=== PATIENT | female | born 1960 | race Caucasian/White ===

== ENCOUNTER 2016-09-11 05:55 | Emergency (ER) | payer OTHER ==
[~2016-09-11] VITALS: Ht 167.6 cm; Wt 67.3 kg
[2016-09-11 05:57] VITALS: BP 134/84; PULSE 78; RESP 16; O2SAT 98
--- NOTE | 2016-09-11 06:02 | ED.REPORT ---
HPI-Abd Pain F 40 and Over Date of Service Sep 11, 2016 ED Provider: Suleman Liang MD 55 year old female presents to the ER accompanied by her complaining of a month of cramping abdominal pain. Associated symptoms include subjective fever , chills, vomiting, and episodic watery diarrhea every three days that follows a normal bowel movement. Symptoms seem to be exacerbated by eating. Recently she has .been on a bland diet to treat symptoms. Patient denies hematochezia, hematemesis, melena. Currently she is on Prilosec and Align Probiotic. reports that patient has an appointment with GI next week, but symptoms were severe and persistent enough that he brought the patient in to the ER today. Patient was seen by urgent care three days ago for symptoms. Nursing Notes Stated Complaint: STOMACH PAIN Chief Complaint: Female Abdominal Pain Nursing Notes Reviewed: Yes Allergies: Coded Allergies: No Known Allergies (Verified , 09/11/16) General Time Seen by MD: 06:01 Chief Complaint Abdominal pain Hx Obtained From: Patient Arrived By: Walk-in Sudden in Onset?: No Onset Occurred: More than a week ago... (1 month) Symptom Duration: Since onset Progression since Onset: Unchanged Location: : Diffuse Quality: Cramping, Painful Severity: Current: Moderate Severity: Maximum: Moderate Associated with: Reports: Chills, Diarrhea, Fever (subjective), Nausea, Vomiting, Denies: Constipation, Hematemesis, Hematochezia, Melena, Urinary frequency Context Related History: Reports: Endometriosis Recent Healthcare: Recent doctor visit Past Medical History Past Medical History Endometriosis Denies: COPD, Cancer, Congestive heart failure, Coronary artery disease, Diabetes mellitus, Hypertension Denies: Thyroid disease Past Surgical History Reports: Hysterectomy Smoking History Never Smoker Social History Alcohol Use: 1-3 per week (wine or beer) Other Social History: Good social support, Ambulatory Status Independent Review of Systems Constitutional: Reports: Chills, Fever (Subjective) GI: Reports: Abdominal pain, Diarrhea, Nausea, Vomiting, Denies: Bloody/tarry stool, Hematemesis, Hematochezia, Melena Female: Reports: Urinary urgency (a), Denies: Dysuria, Flank pain, Hematuria Complete sys rev & neg: except as marked. Physical Exam Vital Signs Vital Signs (First) Date Time Temp Pulse Resp B/P Pulse Ox O2 Delivery O2 Flow Rate FiO2 09/11/16 05:57 36.2 78 16 134/84 98 Room Air Initial VS: Reviewed Head / Eyes: Atraumatic, Normocephalic Neck: Supple, Non-tender, Full range of motion Extremities: Vascular intact, Neuro intact, No swelling, No tenderness Skin: Warm, Dry, No cyanosis Neurologic: Alert, Oriented, Nonfocal Psychiatric: Mood/affect normal, Behavior normal, Normal thought content General/Constitutional: Awake, Alert, Well appearing, Well developed, Well nourished Respiratory / Chest: Breath sounds NL, Breath sounds = bilat, No respiratory distress, No rales, No rhonchi, No wheezing, No stridor Cardiovascular: Heart rate NL, Regular rhythm, Heart sounds NL, Peripheral circulation NL Abdomen: Soft, No guarding, No rebound, No distention Tenderness/Guarding/Rebound: Positive: Tender diffuse (Left greater than Right) Back: Inspection NL, Non-tender, No CVA tenderness Interpretation & Diagnostics Lab Results Interpretation Test 09/11/16 07:00 Hold Urine Received (Received) Re-Eval/Medical Decision Source of Hx: Old records Re-Evaluation/Progress #1: Time of Eval: 07:17 Re-Evaluation/Progress Note: Patient is in the bathroom. Re-Evaluation/Progress #2: Time of Eval: 07:39 Re-Evaluation/Progress Note: Discussed physical examination results, lab results from her visit three days ago, and plan to discharge. Patient is amenable to the plan. Return precautions given. All other questions addressed. I had a lengthy discussion with the patient offered further testing such as CT scanning which she has declined. I believe the appropriate next step is to await GI consultation which is already planned. We have sent a stool for PCR evaluation which hopefully will be helpful for the GI assessment. I have prescribed empiric Levsin to see if this will help her symptoms. Counseled Regarding: Diagnosis, Lab results, Need for follow-up, When/why to return to ED Discharge & Departure Primary Impression: Abdominal pain Abdominal location: epigastric Qualified Code: R10.13 - Epigastric pain Additional Impressions: Vomiting Vomiting type: unspecified Vomiting Intractability: non-intractable Nausea presence: with nausea Qualified Code: R11.2 - Nausea with vomiting, unspecified Diarrhea Disposition: Home Discharge Condition All VS Reviewed: Yes Condition: Stable Patient Instructions: Acute Abdominal Pain (ED) Additional Instructions: Your lab results from several days ago and your workup in the ER today are reassuring; I am confident that there is no immediately dangerous cause for your symptoms at this time. Take Tylenol for pain, up to 1000mg every 6 hours as needed. For severe pain, take hyoscyamine as directed. Avoid using ibuprofen, as this medication is known to be associated with gastrointestinal bleeding. Iron is fine to take for now, but it is known to cause constipation. Follow-up with gastroenterology as planned. Return to the ER if you develop intolerable pain, fever, blood in your stool, lightheadedness, dizziness, and any other concerning signs or symptoms. Referrals: NOPCP (PCP) Rony Attestation Portions of this note were transcribed by Ricky Shore. I, Dr. Liang, personally performed the history, physical exam and medical decision-making; I reviewed and confirmed the accuracy of the information in the transcribed note. Signed by: Santiago Garcia and Rony Cheung, 09/11/2016 and 07:55 Suleman Liang MD Sep 11, 2016 06:02 RICKY SHORE Sep 11, 2016 06:07
[2016-09-11] MEDS ORDERED: HYOS0.1218 SL (08:08)
[2016-09-11 08:14] VITALS: BP 135/75; PULSE 95; RESP 18
[2016-10-10] MEDS ORDERED: ACET-171 PO (12:58)
[2016-10-21] MEDS ORDERED: NO MEDS (10:07)
[2016-11-19] MEDS ORDERED: [UNRECOGNIZED DRUG - CODE] PO (14:14)
[2016-11-19] MEDS ORDERED: ASCO500C6 PO (14:14)
[2016-11-19] MEDS ORDERED: ONDA4TAB9 PO (14:14)
[2016-11-19] MEDS ORDERED: [UNRECOGNIZED DRUG - OTHER] (14:14)
[2016-11-19] MEDS ORDERED: IRON PO (14:14)
[2017-01-02] MEDS ORDERED: VITA400C19 PO (12:30)
[2017-01-02] MEDS ORDERED: CBD Oil PO (12:30)
== END 2016-09-11 08:07 | disposition home or self-care (01) ==
LOC: SED 05:55
DX: R10.13 Epigastric pain (principal); R11.2 Nausea with vomiting, unspecified; R19.7 Diarrhea, unspecified

== ENCOUNTER 2016-09-15 09:03 | Emergency (ER) | payer OTHER ==
[~2016-09-15] VITALS: Ht 167.6 cm; Wt 144.0 kg
[~2016-09-15 09:03] MED LIST: HYOS0.1218 SL
[2016-09-15 09:06] VITALS: BP 143/86; PULSE 100; RESP 15; O2SAT 98
[2016-09-15] MEDS ORDERED: 0.9% Sodium Chloride 1,000 ML IV ONE (09:24)
--- NOTE | 2016-09-15 09:24 | ED.REPORT ---
HPI-General Illness Date of Service Sep 15, 2016 ED Provider: Fredy Rodriguez MD 55 year old female with a history of hysterectomy presents to the ER referred from urgent care due to five days of persistent nausea, diarrhea, and intractable vomiting. Associated symptoms include fever, cramping abdominal pain , "heartburn" symptoms, and bloating. Patient denies hematemesis, and hematochezia. She states that symptoms have been present for 6 weeks, worsening over the past several days. Patient was seen here in the ER five days ago and discharged with a prescription of hyoscyamine and instructions to follow-up with GI after being worked up for similar. Symptoms are also being treated with Prilosec with minimal relief. Nursing Notes Stated Complaint: GENERAL Chief Complaint: Female Abdominal Pain Nursing Notes Reviewed: Yes Allergies: Coded Allergies: No Known Allergies (Verified , 09/11/16) Scheduled Hyoscyamine SL (Hyoscyamine SL) 0.125 Mg Subl 0.125 MG SL QID Scheduled PRN Loperamide HCl (Imodium A-D) 2 Mg Capsule 4 MG PO TID PRN PRN For Diarrhea or Loose Stool Ondansetron ODT (Zofran ODT) 4 Mg Tablet 4 MG PO Q4H PRN PRN For Nausea Simethicone (Simethicone) 180 Mg Capsule 180 MG PO QID PRN PRN AD General Time Seen by MD: 09:23 Chief Complaint Vomiting Hx Obtained From: Patient Arrived By: Walk-in Sudden in Onset?: No Onset Occurred: 5 days ago Associated with: Reports: Nausea, Vomiting, Denies: Fever Additional Notes: Diarrhea Denies hematemesis, hematochezia Recent Healthcare: Recent doctor visit Similar Sx Previous: Yes Past Medical History Past Medical History Endometriosis Past Surgical History Reports: Hysterectomy Smoking History Never Smoker Social History Alcohol Use: 1-3 per week Other Social History: Good social support, Ambulatory Status Independent Review of Systems Full Review of Systems Constitutional: Reports: Fever, Denies: Chills Respiratory: Denies: Non-productive cough, Shortness of breath Cardiovascular: Denies: Chest pain GI: Reports: Abdominal pain, Diarrhea, Nausea, Vomiting, Denies: Bloody/tarry stool, Hematemesis, Hematochezia, Melena Female: Denies: Dysuria, Flank pain, Hematuria Complete sys rev & neg: except as marked. Physical Exam Vital Signs Vital Signs Date Time Temp Pulse Resp B/P Pulse Ox O2 Delivery O2 Flow Rate FiO2 09/15/16 11:57 36.2 74 16 128/68 100 Room Air 09/15/16 10:46 74 16 128/68 100 Room Air 09/15/16 09:06 36.2 100 15 143/86 98 Room Air Initial VS: Reviewed Head / Eyes: Atraumatic, Normocephalic Neck: Supple, Non-tender, Full range of motion Extremities: Vascular intact, Neuro intact, No swelling, No tenderness Skin: Warm, Dry, No cyanosis Neurologic: Alert, Oriented, Nonfocal General/Constitutional: Awake, Alert, Well developed, Well nourished ENT: Airway patent, Pharynx NL Mouth: Positive: Mucous membranes dry Respiratory / Chest: Breath sounds NL, No respiratory distress, No rales, No rhonchi, No wheezing Cardiovascular: Heart rate NL, Regular rhythm, Heart sounds NL, Cap refill not delayed, Peripheral circulation NL Abdomen: Soft, No guarding, No rebound, No distention Tenderness/Guarding/Rebound: Positive: Tender epigastric Tolerates firm palpation all 4 quadrants. Interpretation & Diagnostics Lab Results Interpretation Result Diagram: 09/15/16 0940 09/15/16 0940 Test 09/15/16 09:10 09/15/16 09:40 Hold Urine Received (Received) White Blood Count 3.4th/mm3 (3.8-10.1) Red Blood Count 4.38mil/mm3 (3.90-5.20) Hemoglobin 10.5g/dL (12.0-15.6) Hematocrit 33.6% (35.0-46.0) Mean Corpuscular Volume 76.7fL (81-100) Mean Corpuscular Hemoglobin 24.0pg (27.0-35.0) Mean Corpuscular Hemoglobin Concent 31.3% (32.0-37.0) Red Cell Distribution Width 15.3% (12.3-15.4) Platelet Count 269bil/L (150-400) Neutrophils (%) (Auto) 63.7% (40-74) Lymphocytes (%) (Auto) 24.8% (14-46) Monocytes (%) (Auto) 10.3% (4-12) Eosinophils (%) (Auto) 0.6% (0-5) Basophils (%) (Auto) 0.6% (0-3) Sodium Level 136mEq/L (134-144) Potassium Level 4.2mEq/L (3.5-5.2) Chloride Level 97mEq/L (97-108) Carbon Dioxide Level 20mmol/L (18-29) Blood Urea Nitrogen 14mg/dL (6-24) Creatinine 0.69mg/dL (0.57-1.00) Estimat Glomerular Filtration Rate 126mL/min (>59) Glucose Level 86mg/dL (60-99) Calcium Level 8.8mg/dL (8.5-10.1) Total Bilirubin 0.4mg/dL (0.0-1.2) Aspartate Amino Transf (AST/SGOT) 14U/L (0-50) Alanine Aminotransferase (ALT/SGPT) 7U/L (0-32) Alkaline Phosphatase 47U/L (25-150) Total Protein 6.5g/dL (6.4-8.4) Albumin 4.5g/dL (3.4-5.0) Lipase 59U/L (13-60) Hold Walls Top Tube Received (Received) Re-Eval/Medical Decision Med Decision/Clinical Course 55 year old female with a history of hysterectomy presents to the ER referred from urgent care due to five days of persistent nausea, diarrhea, and intractable vomiting. Associated symptoms include fever, cramping abdominal pain , "heartburn" symptoms, and bloating. Patient denies hematemesis, and hematochezia. She states that symptoms have been present for 6 weeks, worsening over the past several days. Patient was seen here in the ER five days ago and discharged with a prescription of hyoscyamine and instructions to follow-up with GI after being worked up for similar. Symptoms are also being treated with Prilosec with minimal relief. Patient was treated with the below medications: Imodium Simethicone Pantoprazole Thereafter she reported significant symptomatic improvement and was able to tolerate PO. Laboratory studies were notable as below: CBC normal Stable Hct CMP normal Serial abdominal examinations remained benign. At this time. No findings suggestive of bowel obstruction or acute surgical intra-abdominal process. Symptoms all started after a severe gastroenteritis-type illness, I suspect that due to forceful vomiting she may have sustained some injury to her lower esophageal sphincter resulting in the persistent heartburn that she has been experiencing. She is afebrile without leukocytosis or bloody stool suggestive of a bacterial etiology of her gastroenteritis. Stool PCR obtained during her last visit was completely unremarkable. At this time, I see no indication for further imaging studies or workup. I feel that she will likely sustain ongoing symptom relief from the above medications. She has already been referred to gastroenterology and has an appointment in the next week. She will return to the emergency room should she develop any new or worsening symptoms. Follow-up and return precautions were reviewed in detail and she was discharged in good condition. Source of Hx: Old records Time of Eval: 11:19 Re-Evaluation/Progress Note: Discussed lab results and plan to discharge. Patient is amenable to the plan. Return precautions given. All other questions addressed. Counseled Regarding: Diagnosis, Lab results, Need for follow-up, When/why to return to ED Discharge & Departure Primary Impression: Nausea Additional Impressions: Abdominal pain Abdominal location: unspecified location Qualified Code: R10.9 - Unspecified abdominal pain GERD (gastroesophageal reflux disease) Esophagitis presence: esophagitis presence not specified Qualified Code: K21.9 - Gastro-esophageal reflux disease without esophagitis Gastroenteritis Disposition: Home Discharge Condition All VS Reviewed: Yes Condition: Stable Patient Instructions: Gastroesophageal Reflux Disease (DC), Acute Abdominal Pain (ED) Additional Instructions: Thank you for seeking care at emergency room for your nausea and abdominal pain. Our primary goal today in the ED was to evaluate you for any life-threatening conditions. Your evaluation was reassuring. You will be discharged with prescriptions for Simethicone, Imodium, and Zofran. Please take as directed. Take Simethicone as needed for bloating and flatulence Take Imodium as needed for diarrhea. Use Zofran as needed for nausea. Take one Prilosec in the morning, and one at night. Keep your appointment with the GI doctor. You should return to the ED immediately if you develop worsening pain, blood in your vomit, blood in your stool, high fever, or any other concerning signs or symptoms. Thank you for letting us partake in your care today. Referrals: Karina Simms DO (PCP) Scribe Attestation Portions of this note were transcribed by Ricky Shore. I, Dr. Rodriguez, personally performed the history, physical exam and medical decision-making; I reviewed and confirmed the accuracy of the information in the transcribed note. Signed by: Rony Cheung, 09/15/2016 and 11:20 copies to: Karina Simms Beck O MD Sep 15, 2016 09:24 RICKY SHORE Sep 15, 2016 09:29
[2016-09-15] MEDS ORDERED: Ondansetron 2 mg/mL 2 mL Inj IVPUSH ONE (09:25)
[2016-09-15 09:46] LABS: BASOPHILS % (AUTO) 0.6 % (0-3); EOSINOPHILS % (AUTO) 0.6 % (0-5); MONOCYTES % (AUTO) 10.3 % (4-12); Mean Corpuscular Volume 76.7 fL (81-100); NEUTROPHILS % (AUTO) 63.7 % (40-74); Platelet Count 269 bil/L (150-400)
[2016-09-15] MEDS ORDERED: Pantoprazole 4 mg/mL 10 mL Inj IVPUSH ONE (09:50)
[2016-09-15] MEDS ORDERED: SIME180C42 PO (09:52)
[2016-09-15] MEDS ORDERED: LOPE-147 PO (09:52)
[2016-09-15] MEDS ORDERED: ONDA4TAB9 PO (09:52)
[2016-09-15 10:46] VITALS: BP 128/68; PULSE 74; RESP 16; O2SAT 100
[2016-09-15 11:57] VITALS: BP 128/68; PULSE 74; RESP 16; O2SAT 100
[2016-10-10] MEDS ORDERED: ACET-171 PO (12:58)
[2016-10-21] MEDS ORDERED: NO MEDS (10:07)
[2016-11-19] MEDS ORDERED: ONDA4TAB9 PO (14:14)
[2016-11-19] MEDS ORDERED: IRON PO (14:14)
[2016-11-19] MEDS ORDERED: ASCO500C6 PO (14:14)
[2016-11-19] MEDS ORDERED: [UNRECOGNIZED DRUG - CODE] PO (14:14)
[2016-11-19] MEDS ORDERED: [UNRECOGNIZED DRUG - OTHER] (14:14)
[2017-01-02] MEDS ORDERED: VITA400C19 PO (12:30)
[2017-01-02] MEDS ORDERED: CBD Oil PO (12:30)
== END 2016-09-15 11:58 | disposition home or self-care (01) ==
LOC: SED 09:03
DX: K52.9 Noninfective gastroenteritis and colitis, unspecified (principal); K21.9 Gastro-esophageal reflux disease without esophagitis; Z87.42 Personal history of other diseases of the female genital tract; Z90.710 Acquired absence of both cervix and uterus
CPT/HCPCS: 36415; 80053; 83690; 85025; 96361; 96374; 96375; 99285; G0463; J2405; J7030

== ENCOUNTER 2016-09-19 04:54 | Inpatient (IN) | payer OTHER ==
[~2016-09-19] VITALS: Ht 167.6 cm; Wt 62.7 kg
[~2016-09-19 04:54] MED LIST changes: +LOPE-147 PO; +ONDA4TAB9 PO; +SIME180C42 PO
[2016-09-19 04:57] VITALS: BP 139/92; PULSE 104; RESP 18; O2SAT 99
[2016-09-19] MEDS ORDERED: Ondansetron 2 mg/mL 2 mL Inj IVPUSH ONE (05:20)
[2016-09-19] MEDS ORDERED: Pantoprazole 4 mg/mL 10 mL Inj IVPUSH ONE (05:20)
[2016-09-19 05:42] LABS: BASOPHILS % (AUTO) 0.2 % (0-3); EOSINOPHILS % (AUTO) 0.4 % (0-5); MONOCYTES % (AUTO) 5.6 % (4-12); Mean Corpuscular Volume 76.8 fL (81-100); NEUTROPHILS % (AUTO) 85.7 % (40-74); Platelet Count 307 bil/L (150-400)
[2016-09-19 06:04] LABS: Magnesium 2.2 mg/dL (1.6-2.6)
--- NOTE | 2016-09-19 06:05 | ED.REPORT ---
HPI-Abd Pain F 40 and Over Date of Service Sep 19, 2016 ED Provider: Shawna Aquino MD Patient is a 55 year old female w/ a hx of hysterectomy who presents to the ED for the 3rd time in 3 weeks due to intractable vomiting. Associated symptoms include persistent nausea, episodic watery diarrhea, cramping abdominal pain, "heartburn" symptoms, subjective fever, and bloating. Symptoms seem to be exacerbated by eating. Patient denies hematemesis, and hematochezia. She has lost 4 or 5 lbs since symptoms began. She saw a veterinary virologist on Thursday who planned to do a CT, endoscopy and colonoscopy. However, insurance company denied CT and recommended an US. Pt describes the persistent illness is "just wearing me down." She had an episode of vomiting and diarrhea this morning. She has been dealing with abdominal pain and an array of symptoms for a total of 7 weeks. Pt indicates she is quite healthy otherwise. She was most recently seen four days ago similar symptoms Stool PCR study done 8 days ago (09/11/16) did not show any acute findings. Nursing Notes Stated Complaint: ABDOMINAL PAIN Chief Complaint: Female Abdominal Pain Nursing Notes Reviewed: Yes Allergies: Coded Allergies: No Known Allergies (Verified , 09/19/16) Scheduled Ascorbate Calcium (Vitamin C) 500 Mg Tablet 500 MG PO DAILY Ferrous Sulfate (Ferrous Sulfate) 325 Mg Tablet 325 MG PO DAILY Hyoscyamine SL (Hyoscyamine SL) 0.125 Mg Subl 0.125 MG SL QID Omeprazole (Omeprazole) 20 Mg Capsule.dr 20 MG PO BID Scheduled PRN Ondansetron ODT (Zofran ODT) 4 Mg Tablet 4 MG PO Q4H PRN PRN For Nausea Simethicone (Simethicone) 180 Mg Capsule 180 MG PO QID PRN PRN AD General Time Seen by MD: 05:17 Chief Complaint Vomiting severe (intractable) Hx Obtained From: Patient Arrived By: Walk-in Sudden in Onset?: Yes Onset Occurred: More than a week ago... (1 month) Symptom Duration: Since onset Progression since Onset: Gradually worsening Location: : Diffuse Quality: Burning, Cramping Radiation: : Does not radiate Severity: Current: Moderate Recent Healthcare: Recent doctor visit Similar Sx Previous: Yes Past Medical History Past Medical History Endometriosis Past Surgical History Reports: Hysterectomy Smoking History Never Smoker Social History Alcohol Use: 1-3 per week Other Social History: Good social support, Ambulatory Status Independent Review of Systems Constitutional: Reports: Fever (subjective ) GI: Reports: Abdominal pain, Diarrhea, Nausea, Vomiting, Denies: Hematemesis, Hematochezia Complete sys rev & neg: except as marked. Physical Exam Vital Signs Vital Signs (First) Date Time Temp Pulse Resp B/P Pulse Ox O2 Delivery O2 Flow Rate FiO2 09/19/16 04:57 35.9 104 18 139/92 99 Room Air Initial VS: Reviewed Head / Eyes: Atraumatic, Normocephalic, PERRL Extremities: Vascular intact, Neuro intact, No swelling, No tenderness Neurologic: Alert, Oriented, Nonfocal Psychiatric: Mood/affect normal, Behavior normal, Normal thought content General/Constitutional: Awake Distress / Hydration: Positive: Distress moderate Respiratory / Chest: Atraumatic, Breath sounds NL, Breath sounds = bilat, No respiratory distress Cardiovascular: Heart rate NL, Regular rhythm, Heart sounds NL, No gallop, No murmurs, No rubs Bowel Sounds / Distention: Positive: Bowel sounds hypoactive diffusely tender w/ firmness in both upper quadrants no point tenderness Back: Atraumatic, Inspection NL, Full range of motion, Painless range of motion , Non-tender Mouth: Positive: Mucous membranes dry Interpretation & Diagnostics Lab Results Interpretation Result Diagram: 09/19/16 0530 09/19/16 0530 Test 09/19/16 05:30 09/19/16 07:22 White Blood Count 5.6th/mm3 (3.8-10.1) Red Blood Count 4.91mil/mm3 (3.90-5.20) Hemoglobin 11.8g/dL (12.0-15.6) Hematocrit 37.7% (35.0-46.0) Mean Corpuscular Volume 76.8fL (81-100) Mean Corpuscular Hemoglobin 24.0pg (27.0-35.0) Mean Corpuscular Hemoglobin Concent 31.3% (32.0-37.0) Red Cell Distribution Width 16.0% (12.3-15.4) Platelet Count 307bil/L (150-400) Neutrophils (%) (Auto) 85.7% (40-74) Lymphocytes (%) (Auto) 7.9% (14-46) Monocytes (%) (Auto) 5.6% (4-12) Eosinophils (%) (Auto) 0.4% (0-5) Basophils (%) (Auto) 0.2% (0-3) Prothrombin Time 10.8sec (8.1-12.5) Prothromb Time International Ratio 1.01ratio Sodium Level 142mEq/L (134-144) Potassium Level 4.4mEq/L (3.5-5.2) Chloride Level 100mEq/L (97-108) Carbon Dioxide Level 26mmol/L (18-29) Blood Urea Nitrogen 14mg/dL (6-24) Creatinine 0.80mg/dL (0.57-1.00) Estimat Glomerular Filtration Rate 106mL/min (>59) Glucose Level 127mg/dL (60-99) Calcium Level 9.6mg/dL (8.5-10.1) Magnesium Level 2.2mg/dL (1.6-2.6) Total Bilirubin 0.4mg/dL (0.0-1.2) Aspartate Amino Transf (AST/SGOT) 15U/L (0-50) Alanine Aminotransferase (ALT/SGPT) 11U/L (0-32) Alkaline Phosphatase 51U/L (25-150) Total Protein 7.4g/dL (6.4-8.4) Albumin 4.7g/dL (3.4-5.0) Lipase 125U/L (13-60) Hold Walls Top Tube Received (Received) Urine Color Straw (YELLOW) Urine Appearance Hazy (CLEAR,HAZY) Urine pH 5.5 (5.0-8.0) Urine Specific [facility] 1.030 (1.003-1.035) Urine Protein Tracemg/dL (NEG,TRACE) Urine Glucose (UA) Negativemg/dL (NEGATIVE) Urine Ketones 40mg/dL (NEGATIVE) Urine Occult Blood Negative (NEGATIVE) Urine Nitrite Negative (NEGATIVE) Urine Bilirubin Negative (NEGATIVE) Urine Urobilinogen Normalmg/dL (NORMAL) Urine Leukocyte Esterase Negative (NEGATIVE) Urine RBC 0-2/hpf (0-2) Urine WBC 0-5/hpf (0-5) Urine Epithelial Cells Occasional/hpf (NONE-MOD) Urine Crystals Oxalic acid crystals (NONE Urine Bacteria Few/hpf (NONE-FEW) Urine Hyaline Casts Occasional/lpf (NONE) Urine Granular Casts None seen (NONE SEEN) Urine Waxy Casts None seen (NONE SEEN) Urine Red Blood Cell Casts None seen (NONE SEEN) Urine White Blood Cell Casts None seen (NONE SEEN) Urine Mucus Present (None Seen) Urine Trichomonas None seen (NONE SEEN) Urine Yeast None (NONE SEEN) Urinalysis Comment None Urine Culture Reflexed Not indicated CT Abd / Pelvis Interpretation IMPRESSION: 1. Mid and distal small bowel obstruction with findings suspicious for cecal "apple core" lesion suggesting primary colonic neoplasm. Colonoscopy or barium enema is recommended to further characterize findings. This finding was discussed with Dr. Aquino at 8:36 AM on 09/19/16. 2. Subcentimeter right hepatic hypodensity which likely represents a small hepatic cyst, although without prior comparisons, small hepatic metastasis cannot be excluded. Dictated by: Lilly Marie M.D. on 09/19/2016 at 8:25 Approved by: Lilly Marie M.D. on 09/19/2016 at 8:44 Study type: Abdominal CT no contrast Interpretation / Wet Read by: Interpret - Radiologist Re-Eval/Medical Decision Med Decision/Clinical Course 55-year-old otherwise healthy woman presents with 7 weeks of increasing abdominal pain the last 7 days she has barely been able to keep anything down with recurrent vomiting. 3 ER visits and a gastroenterology consult. Today's CT scan of the abdomen is ordered and reveals a new mass in the right lower quadrant of the abdomen. Surgical consultation is obtained. She will be admitted for additional workup and bowel cleanse NG tube was placed on undergo colonoscopy and then staged decision making for treatment of the newly discovered mass Re-Evaluation/Progress #1: Time of Eval: 08:45 Patient Status: Condition unchanged Re-Evaluation/Progress Note: Pt rechecked. Discussed blood work. Liver test, kidney test, and WBC count are normal. Elevated lipase (125). Plan for nausea medicine and CT scan. Re-Evaluation/Progress #2: Time of Eval: 09:29 Patient Status: Condition unchanged Re-Evaluation/Progress Note: Pt rechecked. Explained results of CT scan to pt and family. Discussed possible cancer diagnosis and plan for admission. Explained need for NG tube. Pt understands and agrees with plan. All questions addressed. Consultation : Referral / Consult Name: RenatoAbdi MD Consulted With: Surgeon Call Returned at: 08:41 Dispensary Clerk: Accepts admit Note: Case discuss. Dr. Gross accepts admit. Counseled Regarding: Diagnosis, Lab results, Need for admission Discharge & Departure Primary Impression: Abdominal mass, RLQ (right lower quadrant) Additional Impression: Bowel obstruction Disposition: ADMITTED TO HOSPITAL Discharge Condition All VS Reviewed: Yes Condition: Stable Referrals: Karina Simms DO (PCP) Scribtara Attestation Portion of this note were transcribed by Fabiana Cunningham. I, Dr. Aquino, personally performed the history, physical exam, and medical decision-making: I reviewed and confirmed the accuracy for the information in the transcribed note. Signed by: omar Robledo, 09/19/16 0800 copies to: Karina Simms Shawna L MD Sep 19, 2016 06:05 FABIANA CUNNINGHAM Sep 19, 2016 07:25
[2016-09-19 06:11] LABS: INR 1.01 ratio
[2016-09-19] MEDS ORDERED: 0.9% Sodium Chloride 1,000 ML IV ONE (07:15)
[2016-09-19] MEDS ORDERED: Ondansetron 2 mg/mL 2 mL Inj IVPUSH PRN (07:15)
[2016-09-19 07:21] VITALS: BP 122/80; PULSE 71; RESP 18
[2016-09-19 08:03] LABS: APPEARANCE,URINE HAZY (CLEAR,HAZY); COLOR,URINE STRAW (YELLOW); OCCULT BLOOD,URINE NEGATIVE (NEGATIVE); PH,URINE 5.5 (5.0-8.0)
[2016-09-19 08:07] LABS: UROBILINOGEN,URINE NORMAL (NORMAL)
[2016-09-19] MEDS: HYDROmorphone 0.5 mg/0.5 mL iSecure Syringe IVPUSH PRN ×2 (08:07→21:06)
--- NOTE | 2016-09-19 08:46 | DRSVH ---
PROCEDURE: CT ABDOMEN AND PELVIS WITH CONTRAST ([id number]) INDICATIONS: belly pain for 7 weeks, can't eat TECHNIQUE: After the administration of intravenous contrast, 5 mm thick sections acquired from the diaphragm to the symphysis. 5 mm coronal and sagittal reformats were acquired. For radiation dose reduction, the following was used: automated exposure control, adjustment of mA and/or kV according to patient siz e. COMPARISON: None. FINDINGS: Image quality: Excellent. ABDOMEN: Lung bases: Lung bases are clear. Heart size is normal. Solid organs: Liver and spleen are normal in size and enhancement. There is a subcentimeter hypodens ity within hepatic segment (series 2, image 26). This may represent a hepatic cyst, but is incompl etely characterized. Gallbladder is unremarkable. Biliary system is non dilated. Pancreas enhances normally. No adrenal nodules. Kidneys demonstrate normal size and enhancement, without hydronephros is. Peritoneum and bowel: There is a small hiatal hernia. The stomach is decompressed. The duodenum and p roximal jejunum are decompressed. A transition point is present within the mid jejunum (series 4, kaveh ge 19) demonstrating marked dilatation of the distal jejunum and the entirety of the ileum. The first portion of the cecum is markedly dilated. An soft tissue mass is present within the midportion of th e cecum (series 2, image 64). This has the appearance of a "apple core" lesion, suspicious for coloni c neoplasm. The downstream colon is filled with a small amount of stool. The appendix is thin-walled and fluid filled. Nodes and vessels: No retroperitoneal or mesenteric adenopathy by size criteria. Aorta and inferior vena cava are normal in size. Miscellaneous: No ventral hernias. PELVIS: Genitourinary: Bladder is decompressed. The uterus is nonvisualized and may be surgically absent. Miscellaneous: No inguinal hernias or adenopathy. Bones: No suspicious bony lesions. No vertebral body compression fractures. IMPRESSION: 1. Mid and distal small bowel obstruction with findings suspicious for cecal "apple core" lesion sugg esting primary colonic neoplasm. Colonoscopy or barium enema is recommended to further characterize f indings. This finding was discussed with Dr. Aquino at 8:36 AM on 09/19/16. 2. Subcentimeter right hepatic hypodensity which likely represents a small hepatic cyst, although wit hout prior comparisons, small hepatic metastasis cannot be excluded. Dictated by: Lilly Marie M.D. on 09/19/2016 at 8:25 Approved by: Lilly Marie M.D. on 09/19/2016 at 8:44
[2016-09-19] MEDS ORDERED: HYDROmorphone 1 mg/mL Inj IVPUSH ONE (09:30)
[2016-09-19] MEDS ORDERED: Sodium Chloride LOK Flush 10 mL Syringe IVFLUSH PRN ×2 (09:35)
[2016-09-19] MEDS ORDERED: Lidocaine 2% 5 mL Topical Jelly ONE (09:42)
[2016-09-19 10:18] VITALS: BP 132/76; PULSE 69; RESP 23
--- NOTE | 2016-09-19 10:24 | NUR ---
NUTRITION ASSESSMENT: ASSESS:55 year old female presents to the ED for the 3rd time in 3 weeks due to intractable vomiting. Associated symptoms include persistent nausea and episodic watery diarrhea, cramping abdominal pain, "heartburn" symptoms, subjective fever, and bloating. Symptoms seem to be exacerbated by eating. She has been dealing with abdominal pain and an array of symptoms for a total of 7 weeks and states "it is wearing me down". CT abdomen / pelvis revealing mid and distal small bowel obstruction with findings suspicious for cecal "apple core" lesion, suggesting primary colonic neoplasm. There is also a subcentimeter right hepatic hypodensity which likely represents a small hepatic cyst, although without prior comparisons, small hepatic metastasis cannot be excluded. Surgery ordering TPN to start this evening. Patient is at significant risk for refeeding syndrome. PMHx:Endometriosis, status post hysterectomy. DIET:NPO. LABS: Reviewed. Glucose 127, A1c pending, Lipase 125. MEDICATIONS: Reviewed. Insulin. NUTRITION FOCUSED PHYSICAL ASSESSMENT: GI symptoms / stool: No stool reported.[place]: None reported. Skin Integrity: Not reported. ANTHROPOMETRICS: Current Wt: 65.9 kgBMI: 23.4 kg/m2. IBW: 59.1 kg (111.5% IBW) ESTIMATED NEEDS (CANCER): Calories: 1648 - 1977 kcal (25 - 30 kcal / kg BW) Protein: 99 - 132 g protein (1.5 - 2.0 g / kg BW) NUTRITION DIAGNOSIS: 1)Inadequate oral intake related to inability to consume sufficient energy, as evidenced by dx small bowel obstruction; surgery following. INTERVENTION: 1) TPN recommendation follows / called to Pharmacy. Due to risk for refeeding, recommend initial TPN at 25% goal macronutrient profile: 80 g dextrose, 30 g amino acid, 10 g lipids. 2) Once refeeding risk resolved, likely Thursday, 09/22, recommend advance TPN slowly to goal macronutrient profile 330 g dextrose, 120 g amino acid, 35 g lipid (57% dextrose, 25% AA, 18% lipid), providing 1952 kcal, 120 g protein, sufficient to meet approx. 100% nutrient needs. MONITOR/EVALUATE: TPN tolerance / advance, labs, GI/nutrition status. Follow up per high nutrition risk guidelines. Addendum: 09/20/16 at [address] TPN appears well tolerated; however, pt. remains at significant risk for refeeding. Will continue same macronutrient profile through weekend and f/u Friday 09/22. Will add Ensure Clear supplement to clear liquid diet.
[2016-09-19] MEDS ORDERED: FERR-83 PO (10:34)
[2016-09-19] MEDS ORDERED: ASCO-294 PO (10:34)
[2016-09-19] MEDS ORDERED: OMEP20CA11 PO (10:34)
--- NOTE | 2016-09-19 11:27 | CONS ---
[address] [address] CONSULTATION REPORT PATIENT: DESMOND KEY : 1960 MR#: [id number] ADMIT: 09/19/2016 JOB ID: [id number] DATE OF SERVICE: 09/19/2016 SURGICAL CONSULTATION: REASON FOR CONSULTATION: The patient is seen in consultation at the request of Dr. Shawna Aquino of the emergency department regarding further evaluation and management of a likely cecal obstruction from malignancy. HISTORY OF PRESENT ILLNESS: The patient is a 55-year-old female who presented to the emergency department early this morning with a recurrent complaint of abdominal pain, nausea, and vomiting, and just overall feeling lousy. She tells me that in the early part of July she developed what she describes as flu-like symptoms. This vomiting and diarrhea after eating a bowl of chili. She switched to a bland diet and eventually was able to feel a little bit better, however then she had recurrent symptoms. Since that time she has had periodic recurrences of nausea and vomiting, heavy belching, and abdominal distention. She has presented to the emergency department on two separate occasions with complaint of abdominal pain and nausea. This was on September 11 and then later on September 15. She was eventually referred to GI and saw them early this week. The gastroenterology PA desired to obtain a CT scan as well as to schedule her for an endoscopy. Unfortunately her insurance company denied the CT scan and endoscopy is yet to be scheduled. When she presented this morning she was found to be tachycardic. A CT scan was indeed obtained, which I personally reviewed. This demonstrates mid and distal small bowel obstruction with findings suspicious for a cecal apple core lesion suggesting a primary colonic neoplasm. There is also a subcentimeter right hepatic hypodensity which likely represents a small hepatic cyst, although metastatic disease cannot be excluded. The patient tells me that her last bowel movement was this morning. Her last meal was on Thursday. She believes she has had a 4-5 pound weight loss over the last two weeks. PAST MEDICAL HISTORY: None. CURRENT MEDICATIONS: None. ALLERGIES: She has no known drug allergies. PAST SURGICAL HISTORY: 1. She had resection of the ovary and tube for a tubal . She believes that was on the right side. 2. She had a vaginal hysterectomy in 2007. 3. She had shoulder surgery in 2012. FAMILY HISTORY: Reviewed and negative colorectal carcinoma. SOCIAL HISTORY: She lives in [place] and is currently unemployed. Does not smoke. Occasionally drinks alcohol. REVIEW OF SYSTEMS: Full review of systems is obtained and as per the HPI. PHYSICAL EXAMINATION: She was afebrile upon admission. This morning her heart rate was 69 beats per minute. Blood pressure is 132/76. She is satting 99 on room air with respiratory rate of 23 breaths per minute. In general, she appears comfortable, in no acute distress. Cardiovascular: She has a regular rate and rhythm. No appreciated murmurs, rubs, gallops. Pulmonary: Lungs clear to auscultation bilaterally. Vascular: She has no carotid bruit. Neck: She has no thyromegaly. Lymph: She has no cervical lymphadenopathy. GI: Her abdomen is soft, nondistended. She has diffuse mild tenderness to palpation, worse on the left than the right. Extremities: Warm, without significant edema. Skin: Warm, without rash. Neurologic: Grossly intact. Psychiatric: Pleasant and appropriate. LABORATORIES: Her white blood cell count was 5.6, hematocrit 37.7, platelet count 307. Her creatinine is 0.8. Her albumin is 4.7. IMAGING: CT scan of the abdomen and pelvis is personally reviewed and as per the HPI, suggesting a possible primary cecal neoplasm with partial obstruction. 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 I am going to admit the patient to the hospital under my service. I have asked the emergency department nurse to place an NG tube for decompression. The plan will be to have a PICC line placed today and start her on TPN for nutritional support in anticipation of a right colectomy in the near future. Hopefully, we can get her adequately decompressed with an NG tube over the next day or so and then give her a bowel prep and I can plan on performing a colonoscopy to obtain a definitive diagnosis prior to surgery. At that point, if she is able to tolerate liquids, she could potentially be discharged home with plans for an elective right colectomy. However, if not, then I will have to plan on the right colectomy during the same hospitalization. I discussed this in detail with the patient as well as her partner. She understands and is in agreement.
--- NOTE | 2016-09-19 11:37 | PCM.CONPHA ---
Subjective Reason for Pharmacy Consult: TPN Management Assessment/Plan Assessment/Plan PARENTERAL NUTRITION ORDERS 1 19-Sep-16 Standard Hang Time: 2100 Substrates Total kcal: 492 AMINO ACIDS 30 g DEXTROSE 80 g Total Volume (mL): 1800 LIPIDS 10 g Sterile Water for Injection QS mL To Infuse Over (hrs): 24 Total Volume 1800 mL At at a rate of (mL/hr): 75 Additives Sodium Chloride 50 mEq "typical" daily requirements Sodium Acetate mEq Sodium 50-120mEq Potassium Chloride 40 mEq Potassium 60-120mEq Potassium Phosphate 30 mEq Phosphate 20-40mEq Calcium Gluconate 9 mEq Magnesium 8-32mEq Magnesium Sulfate 16 mEq Calcium 9-22mEq Acetate* 80-120mEq Chloride* 80-120mEq Regular Insulin units *Depending on acid-base status Famotidine 40 mg Multivitamins 1 std dose Insulin Regimen Trace Elements 1 std dose none Thiamine 100 mg Regular Low Intensity Subcut Folic Acid 1 mg Regular Medium Intensity Subcut Ascorbic Acid mg Regular High Intensity Subcut Regular Insulin Infusion Other: Special Instructions: To be infused via central line only. For delay or inturruption of TPN contact the pharmacist for alternative replacement solution. Signature Date: [facility]ESM[id number], 2016 11[facility]37
[2016-09-19] MEDS: Dextrose 5% Lactated Ringer's 1,000 ML IV SCH ×2 (12:30→23:48)
[2016-09-19] MEDS: Heparin 5,000 Unit/mL Inj SUBQ SCH ×2 (12:36→17:33)
--- NOTE | 2016-09-19 12:44 | NUR ---
Arrival to [facility] Unit 1135am pt arrived to [facility] unit rm 246-2; per pt, "pain is way better /10 from 01/03 previous." NG tube hooked to low int suction; bowel tones hypoactive all quadrants, IV SL, RA, VSS, BG 105 upon arrival and pt able to ambulate from wheelchair to bed ind with steady gait. D5LR started 100/mls per hr and oriented to room. Personal belongings in bag in a closet and to take pt's ID with him at time of departure. Will continue to monitor with frequent rounds.
[2016-09-19] MEDS: Insulin Human REGular 300 Unit/3 mL Inj SUBQ SCH ×2 (14:30→21:34)
[2016-09-19 14:57] VITALS: BP 129/71; PULSE 63; RESP 18
--- NOTE | 2016-09-19 15:04 | NUR ---
Social Work Note - Assessment Dian Steinberg is a 55 yr old admitted for bowel obstruction. EMR reviewed: Pt has [employer] Medicaid, her PCP is Dr Warner. DPOA in medical record. Pt lives at home in [place] with her significant other. She is independent at baseline, No DME. 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 PAINT SPRAYING MACHINE OPERATOR HELPER will follow if needs arise. Plan: home with Family in [place]. KATTY Calderon
--- NOTE | 2016-09-19 16:07 | NUR ---
Pt to Picc Suite Pt wheeled to PICC suite in wheelchair, A&Ox3, VSS, RA, IV SL, NG tube in place, steady gait with transfer, no c/o pain and chart with pt.
--- NOTE | 2016-09-19 17:00 | NUR ---
Return from PICC Suite Pt return from PICC suite, double lumin PICC line in place L arm; no c/o pain; PICC line flushes and draws w/o complications, IV D5LR infusing 100mls/hr; VSS. Will continue to monitor with frequent rounds.
[2016-09-19 17:05] VITALS: BP 150/82; PULSE 64; RESP 18
--- NOTE | 2016-09-19 17:19 | DRSVH ---
PROCEDURE: X-RAY PICC LINE PLACEMENT BY NURSE ([id number]) INDICATIONS: TPN COMPARISON: None. FINDINGS: PICC was placed by the intravenous therapy team from the left side. Fluoroscopic spot celeste m demonstrates tip of PICC overlying the distal SVC. IMPRESSION: Tip of PICC overlies the distal SVC. Dictated by: Charlene Carrera M.D. on 09/19/2016 at 17:17 Approved by: Charlene Carrera M.D. on 09/19/2016 at 17:18
[2016-09-19 21:00] VITALS: BP 137/79; PULSE 69; RESP 18; O2SAT 100
[2016-09-19] MEDS: TPN Per Pharmacist XX SCH (21:29)
[2016-09-19] MEDS: Total Parenteral Nutrition 1 BAG IV SCH (21:30)
[2016-09-20] VITALS (7 sets, daily range): BP systolic 113–128; BP diastolic 69–83; PULSE 58–74; RESP 16–18; O2SAT 96–99
[2016-09-20] MEDS: Heparin 5,000 Unit/mL Inj SUBQ SCH ×3 (00:30→16:33)
[2016-09-20] MEDS: HYDROmorphone 1 mg/mL Inj IVPUSH PRN ×2 (02:00→07:12)
[2016-09-20] MEDS: Insulin Human REGular 300 Unit/3 mL Inj SUBQ SCH ×4 (02:30→20:30)
[2016-09-20 06:18] LABS: BASOPHILS % (AUTO) 0.3 % (0-3); EOSINOPHILS % (AUTO) 2.5 % (0-5); MONOCYTES % (AUTO) 7.1 % (4-12); Mean Corpuscular Hemoglobin 23.7 pg (27.0-35.0); Mean Corpuscular Volume 76.9 fL (81-100); NEUTROPHILS % (AUTO) 64.4 % (40-74); Platelet Count 194 bil/L (150-400)
--- NOTE | 2016-09-20 06:37 | NUR ---
pain/Activity c/o /10 abdominal pain. administered 1 mg IVP Dilaudid. pt respond pain relived by resting quietly in bed with eyes closed, no voice of pain afterward. pt has been ambulating to the rest room multiple times with SBA. NG tube output 150ml brown greenish drainage.Tolerated ice chips and sips. no c/o nausea. Bed is locked and in low position. call light within reach. will continue to monitor.
[2016-09-20 06:39] LABS: Magnesium 2.8 mg/dL (1.6-2.6)
--- NOTE | 2016-09-20 07:22 | NUR ---
Elevated Potassium Patient has a potassium of 6.6 this morning. NOC RN paged Dr. Arndt with these results, but no response was received. I have paged Dr. Gross at [phone], as Dr. Gross is listed as the admitting/attending MD and no other hospitalist is listed.
--- NOTE | 2016-09-20 07:24 | NUR ---
STAT Potassium Lab Received return call from Dr. Gross, I made him aware of K 6.6, he asked for a stat Potassium lab to verify this result.
--- NOTE | 2016-09-20 08:15 | PCM.PNSURG ---
Subjective Visit Information: Reason for Visit Bowel Obstruction/Cancer Dx Surgery/Surgery Date Post-Op Day # Date of Admission: Sep 19, 2016 at 10:18 Hospital Day # Subjective: had a liquid BM, abd feels better, doesn't like the NGT Objective Objective Awake NGT --> 400 cc brownish fluid Abd: soft, nontender, no mass effect Vital Sign- Last 8 Hours Date Time Temp Pulse Resp B/P Pulse Ox O2 Delivery O2 Flow Rate FiO2 09/20/16 07:52 36.5 58 16 121/76 97 Room Air 09/20/16 07:14 36.3 66 18 128/83 99 Room Air 09/20/16 02:51 36.7 60 16 117/70 96 Room Air 09/20/16 00:39 36.6 65 16 126/77 96 Room Air Intake and Output- Last 8 Hour 09/20/16 Cumulative From/Thru 07:00 09/19/16 04:57 - 09/19/16 22:46 Intake Total 1489 ml Output Total 750 ml Balance 739 ml Intake Oral 50 ml IV Total 1439 ml Output Urine Total 600 ml Gastric Drainage Total 150 ml Result Diagram: 09/20/16 0548 09/20/16 0548 Assessment & Plan Impression Cecal mass Problems: Plan Remove NGT and start clears Repeat labs today Continue TPN Plan for bowel prep on Thursday and colonoscopy on Hero Lechuga MD Sep 20, 2016 08:15
[2016-09-20] MEDS: TPN Per Pharmacist XX SCH (08:30)
[2016-09-20] MEDS: Dextrose 5% Lactated Ringer's 1,000 ML IV SCH ×2 (09:07→18:12)
[2016-09-20 09:22] LABS: Magnesium 2.1 mg/dL (1.6-2.6); Phosphorus 2.8 mg/dL (2.5-4.9)
[2016-09-20] MEDS: Ondansetron 2 mg/mL 2 mL Inj IVPUSH PRN (09:32)
--- NOTE | 2016-09-20 09:57 | PCM.PHAPRO ---
Progress TPN #2 Indication: Cecal obstruction, likely colectomy in near future Assessment I. Fluid/HD Euvolemic, VSS, UOP good, I/O balanced II. Chem Lytes WNL and without remarkable trends III. Glycemic control BS<150 IV substrate Advanced conservatively by 50% to ~ 40% of goal PARENTERAL NUTRITION ORDERS 2 20-Sep-16 Standard Hang Time: 2100 Substrates Total kcal: 738 AMINO ACIDS 45 g DEXTROSE 120 g Total Volume (mL): 1800 LIPIDS 15 g Sterile Water for Injection QS mL To Infuse Over (hrs): 24 Total Volume 1800 mL At at a rate of (mL/hr): 75 Additives Sodium Chloride 60 mEq "typical" daily requirements Sodium Acetate 40 mEq Sodium 50-120mEq Potassium Chloride 40 mEq Potassium 60-120mEq Potassium Phosphate 40 mEq Phosphate 20-40mEq Calcium Gluconate 9 mEq Magnesium 8-32mEq Magnesium Sulfate 16 mEq Calcium 9-22mEq Acetate* 80-120mEq Chloride* 80-120mEq Regular Insulin units *Depending on acid-base status Famotidine 40 mg Multivitamins 1 std dose Insulin Regimen Trace Elements 1 std dose none Thiamine 100 mg Regular Low Intensity Subcut Folic Acid 1 mg Regular Medium Intensity Subcut Ascorbic Acid mg Regular High Intensity Subcut Regular Insulin Infusion Other: Special Instructions: Rubén Daugherty Pharm D Sep 20, 2016 09:56
--- NOTE | 2016-09-20 10:45 | NUR ---
Morning Rounds Staffed patient's case with case management, no hospitalist assigned to patient. No plan for discharge at thia time, no placement needs identified at this time.
--- NOTE | 2016-09-20 11:09 | NUR ---
Heartburn Contacted Dr. Lechuga with the following cook page: Patient has been complaining of heartburn since removal of NG tube, stated she has taken Prilosec in the past for heartburn. Please advise. Thank you. Ceci CALLAHAN
[2016-09-20] MEDS: Total Parenteral Nutrition 1 BAG IV SCH (21:05)
[2016-09-21] MEDS: Heparin 5,000 Unit/mL Inj SUBQ SCH ×4 (00:49→22:10)
[2016-09-21] MEDS: Insulin Human REGular 300 Unit/3 mL Inj SUBQ SCH ×4 (02:45→20:30)
[2016-09-21 03:44] LABS: BASOPHILS % (AUTO) 0.3 % (0-3); EOSINOPHILS % (AUTO) 3.8 % (0-5); MONOCYTES % (AUTO) 10.7 % (4-12); Mean Corpuscular Hemoglobin 23.7 pg (27.0-35.0); Mean Corpuscular Volume 79.5 fL (81-100); NEUTROPHILS % (AUTO) 52.4 % (40-74); Platelet Count 196 bil/L (150-400)
--- NOTE | 2016-09-21 04:05 | NUR ---
Activity pt ambulated multiple times to the restroom. encouraged to ambulated in the hallway, but pt state she would like to get well rest tonight and will walk tomorrow. no c/o pain/N/V/D. Tolerating PO intake.
[2016-09-21] MEDS: Dextrose 5% Lactated Ringer's 1,000 ML IV SCH ×2 (04:30→14:46)
[2016-09-21 04:43] LABS: Magnesium 2.2 mg/dL (1.6-2.6); Phosphorus 4.2 mg/dL (2.5-4.9)
[2016-09-21 06:05] VITALS: BP 112/67; PULSE 83; RESP 16; O2SAT 97
[2016-09-21 08:03] VITALS: BP 114/69; PULSE 78; RESP 16; O2SAT 99
--- NOTE | 2016-09-21 08:15 | NUR ---
Plan for Bowel Prep Dr. Lechuga met with patient at bedside this morning, stated patient will start bowel prep tonight for procedure this morning. I asked MD if he would be putting in order for the bowel prep, he stated the patient brought the prep with her, asked when to start the prep and he stated no particular time just start tonight.
[2016-09-21] MEDS: TPN Per Pharmacist XX SCH (08:30)
--- NOTE | 2016-09-21 08:54 | PCM.PHAPRO ---
Progress PARENTERAL NUTRITION ORDERS 3 - Standard Hang Time: 2100 Substrates Total kcal: 1102 AMINO ACIDS 60 g DEXTROSE 180 g Total Volume (mL): 1800 LIPIDS 25 g Sterile Water for Injection QS mL To Infuse Over (hrs): 24 Total Volume 1800 mL At at a rate of (mL/hr): 75 Additives Sodium Chloride 60 mEq "typical" daily requirements Sodium Acetate 40 mEq Sodium 50-120mEq Potassium Chloride 40 mEq Potassium 60-120mEq Potassium Phosphate 40 mEq Phosphate 20-40mEq Calcium Gluconate 9 mEq Magnesium 8-32mEq Magnesium Sulfate 16 mEq Calcium 9-22mEq Acetate* 80-120mEq Chloride* 80-120mEq Regular Insulin units *Depending on acid-base status Famotidine 40 mg Multivitamins 1 std dose Insulin Regimen Trace Elements 1 std dose none Thiamine mg Regular Low Intensity Subcut Folic Acid mg Regular Medium Intensity Subcut Ascorbic Acid mg Regular High Intensity Subcut Regular Insulin Infusion Other: Special Instructions: To be infused via central line only. For delay or inturruption of TPN contact the pharmacist for alternative replacement solution. Rubén Daugherty Pharm D Sep 21, 2016 08:54
--- NOTE | 2016-09-21 09:50 | PCM.PNSURG ---
Subjective Visit Information: Reason for Visit Bowel Obstruction/Cancer Dx Surgery/Surgery Date Post-Op Day # Date of Admission: Sep 19, 2016 at 10:18 Hospital Day # Subjective: feels better with NGT out, passing flatus, no real BM, tolerated clears, heartburn under control by elevating her back Objective Objective awake in bed, conversant in room Abd: soft Vital Sign- Last 8 Hours Date Time Temp Pulse Resp B/P Pulse Ox O2 Delivery O2 Flow Rate FiO2 09/21/16 08:03 37.1 78 16 114/69 99 Room Air 09/21/16 06:05 36.8 83 16 112/67 97 Room Air Intake and Output- Last 8 Hour 09/21/16 Cumulative From/Thru 07:00 09/19/16 04:57 - 09/20/16 17:44 Intake Total 6462 ml Output Total 4375 ml Balance 2087 ml Intake Oral 3146 ml IV Total 2477 ml TPN/PPN 839 ml Output Urine Total 4075 ml Gastric Drainage Total 300 ml # Bowel Movements 0 Result Diagram: 09/21/16 0328 09/21/16 0328 Assessment & Plan Impression Cecal mass Problems: Plan Continue TPN and clears Start bowel prep and Thursday Colonoscopy on with Hero Garcia MD Sep 21, 2016 09:50
[2016-09-21 13:41] VITALS: BP 148/82; PULSE 66; RESP 16; O2SAT 99
[2016-09-21 16:27] VITALS: BP 145/84; PULSE 71; RESP 16; O2SAT 100
--- NOTE | 2016-09-21 16:30 | NUR ---
Bloating/Cramping/Watery Stools Contacted Dr. Nieto with the following cook page: Patient is reporting bloating and cramping, 7-8/10 pain at peak of cramps and is now having watery stools prior to any bowel prep. Tums has not worked. Please advise. Thank you. Mariella CALLAHAN Addendum: 09/21/16 at 1631 by MARIELLA SHIPLEY RN Dr. Lechuga was contacted, not Dr. Nieto, noted named Dr. Nieto in error.
--- NOTE | 2016-09-21 16:48 | NUR ---
Received return call from MD Dr. Lechuga return my call, he stated there are no medications that will work for patient's current issues, as the issue is more with the patient's patient's lesion/potential cancer, stated if the patient wants to try an NG she can, but this is up to her, she can have pain medications if needed which are already ordered. He stated there is no need for a stool sample as the watery stools are related to the current CT findings.
[2016-09-21] MEDS ORDERED: [UNRECOGNIZED DRUG - OTHER] PO ONE (18:00)
[2016-09-21] MEDS: Total Parenteral Nutrition 1 BAG IV SCH (20:54)
[2016-09-21 21:02] VITALS: BP 145/82; PULSE 68; RESP 16; O2SAT 97
[2016-09-22] MEDS: Dextrose 5% Lactated Ringer's 1,000 ML IV SCH ×2 (00:03→09:26)
[2016-09-22] MEDS: Insulin Human REGular 300 Unit/3 mL Inj SUBQ SCH ×4 (03:15→20:30)
[2016-09-22 05:37] VITALS: BP 133/81; PULSE 66; RESP 16; O2SAT 95
--- NOTE | 2016-09-22 06:06 | NUR ---
Bowel Prep/Activity Pt began bowel prep at 314, tolerating well with no c/o N/V. Pt up to BR independently for loose stools. Pt reports feeling "much better" since starting TPN, infusing at 75cc/hr. BG 94, VSS.
[2016-09-22 06:21] LABS: Magnesium 2.2 mg/dL (1.6-2.6); Phosphorus 4.5 mg/dL (2.5-4.9)
--- NOTE | 2016-09-22 07:57 | NUR ---
mobility/pain Pt up to [facility] with 1 assist. Crying, reporting severe muscle spasms. After return to bed reports MD wanted her off all her medication. She is requesting toradol, not time yet. During conversation pt fell asleep. No medication given at this time. Will notify palliative care.
--- NOTE | 2016-09-22 08:20 | PCM.PNSURG ---
Subjective Date of Service: Sep 22, 2016 Visit Information: Reason for Visit Bowel Obstruction/Cancer Dx Surgery/Surgery Date Post-Op Day # Date of Admission: Sep 19, 2016 at 10:18 Hospital Day #4 Subjective: Has started GoLYTELY prep this morning. Several bowel movements overnight and this morning. Denies abdominal pain, complains of crampy discomfort from drinking the prep. No nausea or vomiting. Ambulatory in the room. Anticipating colonoscopy tomorrow morning. Postop General: No Complaints Gastrointestinal: Tolerating Oral Feedings, No N/V, Passing Stool Pain Management: No or Minimal Pain Postop Activity: Ambulating in Room Only Objective Vital Sign- Last 8 Hours Date Time Temp Pulse Resp B/P Pulse Ox O2 Delivery O2 Flow Rate FiO2 09/22/16 05:37 36.5 66 16 133/81 95 Room Air Intake and Output- Last 8 Hour 09/22/16 Cumulative From/Thru 07:00 09/19/16 04:57 - 09/22/16 06:21 Intake Total 2182 ml 21438 ml Output Total 1650 ml 43399 ml Balance 532 ml 3128 ml Intake Oral 200 ml 3982 ml IV Total 848 ml 6568 ml TPN/PPN 1134 ml 2803 ml Output Urine Total 1650 ml 9925 ml Gastric Drainage Total 300 ml # Bowel Movements 9 11 General: Alert, Cooperative, No Acute Distress Lungs: Clear to Auscultation Heart: Regular Rate/Rhythm Abdomen: Soft, Non-tender, Non-distended, No masses Extremities: Thigh&Calf Soft/Nontender Neuro: Normal Speech Catheters: None Result Diagram: 09/21/16 0328 09/22/16 0500 Assessment & Plan Impression Partial small bowel obstruction for the past 2 months with radiographic findings of a cecal mass. Problems: Plan 1. Complete GoLYTELY prep today. 2. Colonoscopy by Dr. Gross tomorrow. Pain Management: Intermittent IV analgesic VTE Prophylaxis: Sub-Q Heparin (Unfractionated), SCDs Resuscitation Status: CPR: Attempt Resuscitation Mark Duran PA-C Sep 22, 2016 08:20
[2016-09-22] MEDS: TPN Per Pharmacist XX SCH (08:30)
[2016-09-22] MEDS: Heparin 5,000 Unit/mL Inj SUBQ SCH ×2 (08:41→17:10)
[2016-09-22 09:40] VITALS: BP 122/77; PULSE 69; RESP 16; O2SAT 99
--- NOTE | 2016-09-22 10:55 | PCM.PHAPRO ---
Progress PARENTERAL NUTRITION ORDERS 4 - Standard Hang Time: 2100 Substrates Total kcal: 1605 AMINO ACIDS 85 g DEXTROSE 225 g Total Volume (mL): 1800 LIPIDS 50 g Sterile Water for Injection QS mL To Infuse Over (hrs): 24 Total Volume 1800 mL At at a rate of (mL/hr): 75 Additives Sodium Chloride 60 mEq "typical" daily requirements Sodium Acetate 40 mEq Sodium 50-120mEq Potassium Chloride 40 mEq Potassium 60-120mEq Potassium Phosphate 40 mEq Phosphate 20-40mEq Calcium Gluconate 9 mEq Magnesium 8-32mEq Magnesium Sulfate 16 mEq Calcium 9-22mEq Acetate* 80-120mEq Chloride* 80-120mEq Regular Insulin units *Depending on acid-base status Famotidine 40 mg Multivitamins 1 std dose Insulin Regimen Trace Elements 1 std dose none Thiamine mg Regular Low Intensity Subcut Folic Acid mg Regular Medium Intensity Subcut Ascorbic Acid mg Regular High Intensity Subcut Regular Insulin Infusion Other: Special Instructions: To be infused via central line only. For delay or inturruption of TPN contact the pharmacist for alternative replacement solution. Signature Date: DESMOND KYE 246-2 [facility] SamuelHenok Sep 22, 2016 10:55
--- NOTE | 2016-09-22 12:30 | NUR ---
Social Work Note Continued Discharge Planning: D/A: The Pt is a 55 y/o female that was admitted on 09/19/16 for bowel obstruction/cancer Dx as per EMR. The Pt is ambulating in room only. GI involved, colonoscopy anticipated for 09/23. No SW needs identified at this time. SW to follow if needs arise. P: The Pt is not medically stable for discharge. Colonoscopy anticipated for 09/23. No SW needs identified at this time, SW to follow if needs arise. Rossy Webster MSW Special Education Bus Driver SAHARA Ho
--- NOTE | 2016-09-22 14:30 | NUR ---
NUTRITION FOLLOW-UP: ASSESS: 55 year old female admitted for small bowel obstruction and cecal mass. Pt is taking golytely prep today for colonoscopy tomorrow. Pt has been on TPN since 09/19, with pharmacy slowly increasing TPN over the weekend. Pt appears to be tolerating TPN well at this this time. PMHx: Endometriosis, status post hysterectomy. DIET: Clear Liquids, 10-100%. NUTRITION SUPPORT: TPN~180 g dextrose, 60 g amino acids, and 25 g lipids providing 1102 kcals and 60 g protein. LABS: Reviewed. Na 143, BUN 9, Cr 0.49, Glu 104, Lipase 236. MEDICATIONS: Reviewed. GI symptoms / stool: BM x 9 (pt taking golytely prep for colonoscopy tomorrow) ANTHROPOMETRICS: Current Wt: 65.3 kg Admit wt: 65.9 kg BMI: 23.4 kg/m2. IBW: 59.1 kg (111.5% IBW) ESTIMATED NEEDS (CANCER): Calories: 1648 - 1977 kcal (25 - 30 kcal / kg BW) Protein: 65-100 g protein (1.0-1.5 g / kg BW) Fluids: 3178-7264 ml fluids (1 ml/kcal BW) NUTRITION DIAGNOSIS: 1) Inadequate oral intake related to inability to consume sufficient energy, as evidenced by small bowel obstruction--PERSIST, PT NOW ON TPN. INTERVENTION: 1) Recommend increasing TPN to 225 g dextrose, 85 g amino acids, and 50 g lipids to provide 1605 kcals and 85 g protein per day. 2) As TPN continues to be well tolerated, recommend continuing to advance TPN to goal TPN of 300 g dextrose, 85 g amino acid, 50 g lipids to provide 1860 kcals and 85 g protein per day. 3) Once diet is able to be advanced and well tolerated, recommend tapering TPN. MONITOR/EVALUATE: TPN tolerance / advance, PO intake, diet advancement / tolerance, labs, GI/nutrition status. Follow per high nutrition risk guidelines. Addendum: 09/23/16 at [address] Recommend continuing current macronutrients of 225 g dextrose and 85 g amino acids, no lipids as lipase is elevated and trending upward. TPN will provide 1105 kcals and 85 g protein. Will continue to monitor for further TPN advancement.
[2016-09-22 17:00] VITALS: BP 156/88; PULSE 63; RESP 18
--- NOTE | 2016-09-22 17:33 | NUR ---
stool/pain pt reporting 12 stools, voids in toilet/BM at the same time. Reports clear with flecks. In AM enc pt to let staff see as will need to report to MD. No c/o pain. C/O bloating when drinking to much at one time. Has drank 1/2 of the contrast per order slowly over the course of the day.
[2016-09-22] MEDS: Total Parenteral Nutrition 1 BAG IV SCH (21:00)
[2016-09-23] VITALS (7 sets, daily range): BP systolic 111–131; BP diastolic 70–83; PULSE 63–91; RESP 14–20; O2SAT 96–100
[2016-09-23] MEDS: Heparin 5,000 Unit/mL Inj SUBQ SCH ×3 (00:06→16:30)
[2016-09-23] MEDS: Insulin Human REGular 300 Unit/3 mL Inj SUBQ SCH ×4 (02:30→20:30)
[2016-09-23] MEDS: Dextrose 5% Lactated Ringer's 1,000 ML IV SCH (04:35)
--- NOTE | 2016-09-23 05:43 | NUR ---
Shift Note Assumed pt care at 2100, pt a/o, c/o abdominal bloating, relieved by ambulation x2 around unit ly, pt continues with IVF and IV TPN, q6BG checks, half of golytley prep to be finished this am, prior to colonoscopy.
[2016-09-23] MEDS: TPN Per Pharmacist XX SCH (08:30)
--- NOTE | 2016-09-23 08:41 | NUR ---
IVF Dr Gross in the room and stated ok to heplock IVF. Converted 1 line of double lumen picc to SL.
[2016-09-23 10:19] LABS: Magnesium 2.3 mg/dL (1.6-2.6); Phosphorus 4.9 mg/dL (2.5-4.9)
--- NOTE | 2016-09-23 10:34 | PROG NOTE ---
[address] [address] PROGRESS NOTE PATIENT: DESMOND KEY : 1960 MR#: [id number] ADMIT: 09/19/2016 JOB ID: [id number] DATE: 09/23/2016 SUBJECTIVE: The patient was seen in followup for her admission for large bowel obstruction almost certainly related to primary neoplasm involving the cecum. Yesterday she began a bowel prep. This is inducing some crampy abdominal pain but she is otherwise tolerating it well. She has remained afebrile and hemodynamically normal. This morning, she is alert and oriented and comfortable. Labs from today are pending. Her lipase has been slowly climbing and was 236 yesterday, 189 the day before. This is of unclear etiology. Her creatinine looks fine. She does have anemia with a hemoglobin of 8.1 on the as well as on the . ASSESSMENT/PLAN: This is a 55-year-old female with likely a neoplasm of the cecum. Plan is for me to perform a colonoscopy this afternoon. I have also tentatively scheduled her for a laparoscopic right colectomy on Thursday. The patient is very eager to go home in the interval. I will ultimately make a decision based on the endoscopic findings as well as her labs from today. I will defer the decision until those labs come back.
--- NOTE | 2016-09-23 11:48 | PCM.PHAPRO ---
Progress TPN Management: -pt is receiving TPN for cecal obstruction -Day 5 of TPN this evening -IV fluids have been discontinued as of this morning -Macronutrients have remained the same as yesterday with the exception of omitting the lipids due to the increase in Lipase to 302 today (per discussion with grain origination specialist) -glycemic control has remained stable -electrolytes have been adjusted with new formula for this evening as follows: 23-Sep-16 Standard Hang Time: 2100 Substrates Total kcal: 1105 AMINO ACIDS 85 g DEXTROSE 225 g Total Volume (mL): 1800 LIPIDS 0 g Sterile Water for Injection QS mL To Infuse Over (hrs): 24 Total Volume 1800 mL At at a rate of (mL/hr): 75 Additives Sodium Chloride 60 mEq "typical" daily requirements Sodium Acetate 40 mEq Sodium 50-120mEq Potassium Chloride 60 mEq Potassium 60-120mEq Potassium Phosphate mEq Phosphate 20-40mEq Calcium Gluconate 4.5 mEq Magnesium 8-32mEq Magnesium Sulfate 6 mEq Calcium 9-22mEq Acetate* 80-120mEq Chloride* 80-120mEq Regular Insulin units *Depending on acid-base status Famotidine 40 mg Multivitamins 1 std dose Insulin Regimen Trace Elements 1 std dose none Thiamine mg Regular Low Intensity Subcut Folic Acid mg Regular Medium Intensity Subcut Ascorbic Acid mg Regular High Intensity Subcut Regular Insulin Infusion Other: -Phosphate has been omitted from formula today due to level of 4.9. Calcium has been decreased as is trending upward as well as magnesium Leonora León [facility] Sep 23, 2016 11:48
--- NOTE | 2016-09-23 12:27 | NUR ---
Social Work Note - Continued Discharge Planning: D/A: The Pt is a 55 y/o female that was admitted on 09/19/16 for bowel obstruction/cancer Dx as per EMR. Pt discussed in rounds this morning, Pt is scheduled for a colonoscopy today with the possibility of surgery on Thursday. Nursing requested information regarding the possibility of the Pt being discharged home with TPN for two days prior to surgery. SW placed call with [facility] regarding this possibility, [facility] reported that TPN would be possible but very complicated. Nursing staff informed and updated. No SW needs anticipated at this time, SW to follow if needs arise. P: Pt likely to discharge home with medically stable. Colonoscopy scheduled for today with the possibility of surgery on Thursday. No SW needs anticipated at this time, SW to follow if needs arise. Rossy Webster MSW Stakeholder Manager SAHARA Ho
--- NOTE | 2016-09-23 15:38 | NUR ---
colonoscopy Pt taken via stretcher to endoscopy, Report given to Jasmin. Family present at time of transport.
[2016-09-23] MEDS ORDERED: Lactated Ringer's 1,000 ML IV ONE (15:53)
--- NOTE | 2016-09-23 16:02 | NUR ---
Abd bloating/mobility Pt able to tolerate sips of prep but does cause bloating. No pain Indep ambulation in ly and in room.
[2016-09-23] MEDS ORDERED: fentaNYL-PF 50 mCg/mL 2 mL Inj IVPUSH PRN ×2 (16:05→16:20)
--- NOTE | 2016-09-23 18:00 | NUR ---
Return to endoscopy Pt returned via stretcher from endo. Able to transfer indep and amb to BR then to bed. Family arrived at same time as patient. No c/o pain Abd bloated, soft, tender. Surgery planned for Thursday.
--- NOTE | 2016-09-23 18:58 | ENDO ---
[address] [address] ENDOSCOPY PROCEDURE PATIENT: DESMOND KEY : 1960 MR#: [id number] ADMIT: 09/19/2016 JOB ID: [id number] PRIMARY CARE PHYSICIAN: Karina Simms MD PROCEDURE: Colonoscopy with tattoo and biopsy. SURGEON: Dr. Abdi Gross. EQUIPMENT: PCF H 180 AL. SEDATION: Versed 5 mg and fentanyl 75 mcg. QUALITY OF PREPARATION: Good. INDICATIONS: The patient is a 55-year-old female with no prior colonoscopies who was admitted to the hospital last Thursday with colonic obstruction and CT scan suggestive of a cecal mass. PROCEDURE DETAILS: The patient was brought into the endoscopy suite and placed in left lateral decubitus position. Sedation was achieved using the above-stated medications with the addition of oxygen administered via nasal cannula. Digital rectal exam was performed and unremarkable. The scope was then inserted into the anus and passed under direct visualization down into the cecum. From what appeared to be the ileocecal valve there was a large tumor/polyp that would intermittently prolapse and then recede back in almost completely out of view. It was not 100% clear to me that this represented the ileocecal valve as I could not identify the appendiceal orifice. I could not intubate the "valve" because it was completely filled by the mass. 3 mL of SPOT tattoo was then injected submucosally adjacent to the tumor. I then took two cold forceps biopsies of the tumor itself. The biopsies were somewhat blind as patient movement and the movement of the mass limited my ability to biopsy it under direct visualization. The scope was then slowly withdrawn, examining the mucosa for any additional defects or polyps. Nothing was identified. Retroflexed views were obtained in the rectum and unremarkable. The scope was then removed. The entire procedure was well tolerated without complication. ENDOSCOPIC DIAGNOSIS: Obstructing mass of the cecum/IC valve. RECOMMENDATIONS: The patient is scheduled to undergo a laparoscopic right colectomy on Thursday. EDI
[2016-09-23 19:48] LABS: Unsaturated Iron Binding 398.9 ug/dL
[2016-09-23] MEDS: Total Parenteral Nutrition 1 BAG IV SCH (21:31)
[2016-09-24] MEDS: Heparin 5,000 Unit/mL Inj SUBQ SCH ×3 (00:13→16:41)
[2016-09-24] MEDS: Insulin Human REGular 300 Unit/3 mL Inj SUBQ SCH ×4 (02:30→20:30)
[2016-09-24 04:45] VITALS: BP 129/72; PULSE 65; RESP 17; O2SAT 99
[2016-09-24 05:17] LABS: Magnesium 2.1 mg/dL (1.6-2.6); Phosphorus 4.4 mg/dL (2.5-4.9)
--- NOTE | 2016-09-24 06:02 | NUR ---
Bloating Pt reports bloating has gone down, although she is slurry control tender in the abdomen. Pt states " she feels a lot better, and was able to rest."
[2016-09-24] MEDS: TPN Per Pharmacist XX SCH (08:30)
[2016-09-24] MEDS ORDERED: Iron Sucrose Inj 100 MG in 0.9% Sodium Chloride 100 ML IV ONE (08:55)
--- NOTE | 2016-09-24 09:23 | PROG NOTE ---
[address] [address] PROGRESS NOTE PATIENT: DESMOND KEY : 1960 MR#: [id number] ADMIT: 09/19/2016 JOB ID: [id number] DATE: 09/24/2016 SUBJECTIVE: The patient was seen in followup for her colonic obstruction suggestive of malignancy of the cecum. Yesterday I performed colonoscopy. Quality of the prep was good. There was what appeared to be a tumor arising from the ileocecal valve itself. This was not 100% clear. Biopsies were taken. I also tattooed the tumor. I decided to keep the patient in-house until Thursday when I will perform a laparoscopic right colectomy. I want her to remain on TPN and really wanted to minimize her oral intake as I am concerned about the possibility of small bowel dilation which would limit my ability to perform the surgery laparoscopically and also great concerns about the anastomosis. Yesterday iron studies suggested that she is iron deficient which is certainly consistent with her clinical picture. I am going to give her an infusion of iron today. She has remained afebrile. Hemodynamically normal. This morning, she is alert, oriented and comfortable. Her abdomen is soft, nondistended. Not significantly tender. Specifically she has no epigastric tenderness. LABORATORIES: Her creatinine 0.49 this morning. Yesterday her lipase was elevated at 302 which has been slowly trending up. I did not recheck this today. ASSESSMENT AND PLAN: This is a 55-year-old female with a tumor involving the cecum likely the ileocecal valve causing obstruction scheduled to undergo a laparoscopic right colectomy on Thursday. She is going to receive iron infusion today for her anemia. With respect to the elevated lipase, the etiology is completely unclear to me. There is no evidence of pancreatitis on her admission CT and she has no epigastric tenderness. It is possible that hepatic metastasis could be contributing to this though there is no clear evidence of metastasis on the CT. Regardless she requires surgery for this obstruction and plan to proceed on Thursday. In the interim she will remain on TPN and only sips of clear liquids. I will plan on giving her antibiotic bowel prep night.
--- NOTE | 2016-09-24 11:36 | PCM.PHAPRO ---
Progress PARENTERAL NUTRITION ORDERS 6 24-Sep-16 Standard Hang Time: 2100 Substrates Total kcal: 1514 AMINO ACIDS 95 g DEXTROSE 260 g Total Volume (mL): 1800 LIPIDS 25 g Sterile Water for Injection QS mL To Infuse Over (hrs): 24 Total Volume 1800 mL At at a rate of (mL/hr): 75 Additives Sodium Chloride 60 mEq "typical" daily requirements Sodium Acetate 40 mEq Sodium 50-120mEq Potassium Chloride 50 mEq Potassium 60-120mEq Potassium Phosphate 10 mEq Phosphate 20-40mEq Calcium Gluconate 4.5 mEq Magnesium 8-32mEq Magnesium Sulfate 6 mEq Calcium 9-22mEq Acetate* 80-120mEq Chloride* 80-120mEq Regular Insulin units *Depending on acid-base status Famotidine 40 mg Multivitamins 1 std dose Insulin Regimen Trace Elements 1 std dose none Thiamine mg Regular Low Intensity Subcut Folic Acid mg Regular Medium Intensity Subcut Ascorbic Acid mg Regular High Intensity Subcut Regular Insulin Infusion Other: Special Instructions: To be infused via central line only. For delay or inturruption of TPN contact the pharmacist for alternative replacement solution. Signature Date: DESMOND KEY 246-[address] [facility] [place] Sep 24, 2016 11:36
[2016-09-24 14:20] VITALS: BP 123/85; PULSE 75; RESP 20; O2SAT 99
--- NOTE | 2016-09-24 15:50 | NUR ---
NUTRITION FOLLOW-UP: ASSESS: 55 year old female admitted for small bowel obstruction and cecal mass. Pt s/p colonoscopy on 09/23 and is planning on having laparoscopic R colectomy on 09/26. Pt has been on TPN since 09/19 but TPN is not yet at goal rate. Lipids were removed from TPN yesterday for today's bag due to upward trending lipase. No new lipase level yet. New TPN recs provided to pharmacy. PMHx: Endometriosis, status post hysterectomy. DIET: NPO. Pt has been refusing PO intake. NUTRITION SUPPORT: TPN~225 g dextrose, 80 g amino acids, and 0 g lipids providing 1105 kcals and 85 g protein. LABS: Reviewed. MEDICATIONS: Reviewed. GI symptoms / stool: BM x 9 09/23 (due to taking colonoscopy prep) ANTHROPOMETRICS: Current Wt: 63.2 kg Admit wt: 65.9 kg BMI: 23.4 kg/m2. IBW: 59.1 kg (111.5% IBW) ESTIMATED NEEDS (CANCER): Calories: 1648 - 1977 kcal (25 - 30 kcal / kg BW) Protein: 65-100 g protein (1.0-1.5 g / kg BW) Fluids: 1566-5142 ml fluids (1 ml/kcal BW) NUTRITION DIAGNOSIS: 1) Inadequate oral intake related to inability to consume sufficient energy, as evidenced by small bowel obstruction--PERSIST, PT NOW ON TPN. INTERVENTION: 1) Recommend increasing TPN to 260 g dextrose, 95 g amino acids, and 25 g lipids to provide 1514 kcals and 95 g protein per day. 2) Goal TPN recommendations pending new lipase level as pt may only be able to receive lipids 3-4 times per week rather than daily. 3) Once diet is able to be advanced and well tolerated, recommend tapering TPN. MONITOR/EVALUATE: TPN tolerance / advance, diet advancement / tolerance, labs, GI/nutrition status. Follow per high nutritional risk guidelines. Addendum: 09/25/16 at [address] Will continue with current TPN macronutrients today at 260g Dex, 95g AA and 25g Lipids. Pt Lipase continues to be high but has decreased to 245. Pharmacy aware of recommendation to continue current rate.
--- NOTE | 2016-09-24 16:10 | NUR ---
Dialysis Pt arrived to dialysis room via stretcher from ER. 5 person transfer, with slide board into bed. reviewed H&P. Addendum: 09/24/16 at 1727 by CORBY BENNETT RN Error wrong chart/patient
--- NOTE | 2016-09-24 17:31 | NUR ---
Bloating/mobility Pt reports less bloating as day progressed. Abd still a bit tender and soft. Clarified diet: NPO except sips and chips. Pt was able, per MD permission, to go outside in w/ch with SO. Took shower then re-attached to TPN. Awaiting surgery thursday. Pharmacy called at stated neomycin not available PO but IV They were planning to call office for clarification.
[2016-09-24 18:00] VITALS: BP 122/80; PULSE 79; RESP 18; O2SAT 100
[2016-09-24] MEDS: Total Parenteral Nutrition 1 BAG IV SCH (20:55)
[2016-09-24 21:00] VITALS: BP 118/77; PULSE 75; RESP 17; O2SAT 98
[2016-09-25 01:09] VITALS: BP 104/55; PULSE 66; RESP 16; O2SAT 97
[2016-09-25] MEDS: Heparin 5,000 Unit/mL Inj SUBQ SCH ×3 (01:14→16:12)
[2016-09-25] MEDS: Insulin Human REGular 300 Unit/3 mL Inj SUBQ SCH ×4 (02:30→20:30)
[2016-09-25 06:04] VITALS: BP 103/54; PULSE 65; RESP 16; O2SAT 99
--- NOTE | 2016-09-25 06:14 | NUR ---
shift note Had a good night though slept on/off not d/t any discomforts, up ind TPN infusing tolerating sips & chips
[2016-09-25 07:40] LABS: Mean Corpuscular Hemoglobin 23.5 pg (27.0-35.0); Mean Corpuscular Volume 77.8 fL (81-100)
[2016-09-25] MEDS: TPN Per Pharmacist XX SCH (08:30)
[2016-09-25 09:00] VITALS: BP 121/78; PULSE 72; RESP 16; O2SAT 98
--- NOTE | 2016-09-25 09:03 | PROG NOTE ---
[address] [address] PROGRESS NOTE PATIENT: DESMOND KEY : 1960 MR#: [id number] ADMIT: 09/19/2016 JOB ID: [id number] DATE: 09/25/2016 SUBJECTIVE: The patient is seen in followup for her bowel obstruction due to cecal tumor. She had a good day yesterday. She was able to spend an hour or so walking outside which lifted her spirits. She is having less abdominal distention and bloating. OBJECTIVE: She has remained afebrile and hemodynamically normal. This morning, she is alert and oriented and comfortable. Abdomen is soft, nontender, nondistended. LABORATORY STUDIES: Her white blood cell count today is 3.6. Her hematocrit is up to 30.8. Platelet count is 250. Her creatinine is 0.52. Of note, her lipase yesterday was trending down from 302 the day before to 245. ASSESSMENT/PLAN: This is a 55-year-old female with obstructing mass involving the cecum almost certainly malignant scheduled to undergo a laparoscopic right colectomy tomorrow. The patient will be given an antibiotic bowel prep tonight. I have also instructed her to take a Hibiclens shower this evening. The plan is for 7:30 start tomorrow for laparoscopic right colectomy.
--- NOTE | 2016-09-25 10:35 | NUR ---
Morning Rounds Staffed patient's case with case management. I informed case management that patient's paperwork from MD regarding stay after surgery scheduled for 09/26/16 stated inpatient stay estimated to last anywhere from 3-10 days. Case management stated patient is authorized until 09/30/16, so they will follow up for any additional authorizations.
--- NOTE | 2016-09-25 10:49 | PATH ---
SURGICAL PATHOLOGY Attending Physician:Abdi Gross MD CASE STATUS: Signed Out PATIENT NAME: DESMOND KEY PID: [id number] : 1960 DATE COLLECTED:09/23/2016 22:17 SPECIMEN: Colon, Biopsy CLINICAL HISTORY: 1). CECAL TUMOR BIOPSY FINAL DIAGNOSIS: 1.CECAL TUMOR BIOPSY: INVASIVE ADENOCARCINOMA, MODERATELY DIFFERENTIATED. ICD10 code C18.9 NOTE: The finding of invasive adenocarcinoma was reported to Dr. Gross on 09/25/[address] Bashir. Immunohistochemical stains for mismatch repair proteins have been ordered and will be reported in an addendum. As part of a routine cloth tester quality, Dr. Carmelita Webb has also reviewed this case and agrees with the diagnosis. GROSS DESCRIPTION: The specimen is received in one formalin filled container labeled with the patient's name, sublabeled "cecal tumor" and consists of 3 portions of tissue which aggregate to 0.3 x 0.3 x 0.3 CM. The specimen is entirely submitted in one cassette. 09/24/2016 DAC MICRO DESCRIPTION: See diagnosis. ICD-9 CODES: CPT CODES: 1: 22595, 22522, 57124, 75907, 71882 PROCEDURE/ADDENDA: Immunohistochemistry SPI Interpretation {Not Entered} Results-Comments This addendum is issued to report the results of immunohistochemical staining for mismatch repair proteins on the colonic adenocarcinoma. Results: MLH1: Intact nuclear expression. MSH2: Intact nuclear expression. MSH6: Intact nuclear expression. PMS2: Intact nuclear expression. Background nonneoplastic tissue with intact nuclear expression. IHC INTERPRETATION: No loss of nuclear expression of MMR proteins: low probability of microsatellite instability-high (MSI-H)* * This test was developed and its performance characteristics determined by [facility] [facility]. It has not been cleared or approved by the U.S. Food and Drug Administration. The FDA has determined that such clearance or approval is not necessary. This test is used for clinical purposes. It should not be regarded as investigational or for research. Electronically Signed Out Jesi Bashir MD Electronically Signed Out Jesi Bashir MD [facility] [address] [place] [address], [place] [address] Technical component performed at [facility], [address], [place], [address]
--- NOTE | 2016-09-25 10:55 | PCM.PHAPRO ---
Progress TPN per pharmacy PARENTERAL NUTRITION ORDERS 7 25-Sep-16 Standard Hang Time: 2100 Substrates Total kcal: 1514 AMINO ACIDS 95 g DEXTROSE 260 g Total Volume (mL): 1800 LIPIDS 25 g Sterile Water for Injection QS mL To Infuse Over (hrs): 24 Total Volume 1800 mL At at a rate of (mL/hr): 75 Additives Sodium Chloride 60 mEq "typical" daily requirements Sodium Acetate 40 mEq Sodium 50-120mEq Potassium Chloride 50 mEq Potassium 60-120mEq Potassium Phosphate 10 mEq Phosphate 20-40mEq Calcium Gluconate 4.5 mEq Magnesium 8-32mEq Magnesium Sulfate 6 mEq Calcium 9-22mEq Acetate* 80-120mEq Chloride* 80-120mEq Regular Insulin units *Depending on acid-base status Famotidine 40 mg Multivitamins 1 std dose Insulin Regimen Trace Elements 1 std dose none Thiamine mg Regular Low Intensity Subcut Folic Acid mg Regular Medium Intensity Subcut Ascorbic Acid mg Regular High Intensity Subcut Regular Insulin Infusion Other: Special Instructions: To be infused via central line only. For delay or inturruption of TPN contact the pharmacist for alternative replacement solution. Signature Date: DESMOND KEY 238-2 [facility] Pharmacy will continue to follow. Alaina Tavarez PharmAlberto Sep 25, 2016 10:54
[2016-09-25 16:10] VITALS: BP 125/76; PULSE 70; RESP 16; O2SAT 99
--- NOTE | 2016-09-25 16:26 | NUR ---
OR schedule Spoke with Maty in the OR regarding patient's scheduled colectomy, which is scheduled for 0730, stated they will likely come to get patient between [id number] in the morning.
[2016-09-25] MEDS ORDERED: Chlorhexidine 4% 120 mL Topical Solution TOPICAL ONE (20:30)
[2016-09-25] MEDS: Total Parenteral Nutrition 1 BAG IV SCH (21:00)
[2016-09-25 22:07] VITALS: BP 109/69; PULSE 71; RESP 16; O2SAT 98
[2016-09-26] VITALS (14 sets, daily range): BP systolic 115–150; BP diastolic 70–86; PULSE 73–88; RESP 8–17; O2SAT 98–100
[2016-09-26] MEDS: Heparin 5,000 Unit/mL Inj SUBQ SCH ×3 (00:24→16:23)
[2016-09-26] MEDS: Insulin Human REGular 300 Unit/3 mL Inj SUBQ SCH ×4 (02:39→23:44)
[2016-09-26] MEDS: Lactated Ringer's 1,000 ML IV SCH ×2 (05:29→07:33)
--- NOTE | 2016-09-26 05:44 | NUR ---
Emesis pt vomited x1 after 15-30 minutes she took the 2nd dose of PO Flagyl and Neomycin. emesis clear water and saliva, but no visible medication. resolved without medication intervention. no c/o pain. pt took body prep shower today at 0430 per pt preference. will continue to monitor.
--- NOTE | 2016-09-26 07:17 | PCM.HPANE ---
Patient Data Date of Service: Sep 26, 2016 Surgeon Admitting Provider:Abdi Gross MD Attending Provider:Abdi Gross MD Primary Care Physician:Karina Simms DO Other Provider:Best Smith Anesthesia Reason for Visit Bowel Obstruction/Cancer Dx Ht/WT & BMI Height (Feet): 5 Height (Inches): 6.00 Weight (Kilograms): 62.100 Body Mass Index 23.00 Allergies Coded Allergies: No Known Allergies (Verified , 09/19/16) Past Anesthesia History Anesthesia History: Denies:: Abnormal Airway, Difficult Intubation Diabetes History Hx Diabetes?: No Current Bedside Blood Glucose: 97 MRSA MRSA: No Medications Active Scripts Ondansetron ODT (Zofran ODT)4 Mg Tablet4 Mg PO Q4H PRN For Nausea #30 TABLET Prov:Fredy Rodriguez MD 09/15/16 Simethicone 180 Mg [id number] Mg PO QID PRN AD #30 CAPSULE Ref 0 Prov:Fredy Rodriguez MD 09/15/16 Hyoscyamine SL 0.125 Mg Subl0.125 Mg SL QID SPASMS #15 TAB.SL Ref 1 Prov:Suleman Liang MD 09/11/16 Reported Medications Ascorbate Calcium (Vitamin C)500 Mg [id number] Mg PO DAILY #30 09/19/16 Ferrous Sulfate 325 Mg Hfgcyi298 Mg PO DAILY #30 09/19/16 Omeprazole 20 Mg Capsule.dr20 Mg PO BID #60 09/19/16 Discontinued Scripts Loperamide HCl (Imodium A-D)2 Mg Capsule4 Mg PO TID PRN For Diarrhea or Loose Stool #30 CAPSULE Prov:Fredy Rodriguez MD 09/15/16 History History of ENT Problems?: No HEENT History: Denies:: Abnormal Airway Difficult Intubation Hearing Problem Hx of Heart Problems?: No Cardiovascular History: Denies:: Cardiac Surgery Congestive Heart Failure Hypertension Hx of Respiratory Problem?: No Respiratory History: Denies:: Tuberculosis Hx Neurologic Problems?: No Hx of GI Problems?: Yes Gastrointestinal History: Positive for:: Gastroesphageal Reflux Denies:: Diverticulitis Gastrointestinal Bleeding Heartburn Hx of Problems?: No Genitourinary History: Denies:: Kidney Stones Urinary Tract Infection Hx Musculoskeletal Problems?: No Hx of Psycho/Social Problems?: No Psycho Social History: Denies:: Anxiety Bipolar Disorder Hx Surgeries?: Yes (right shoulder, RAMESH) Hx Any Other Health Problems?: No Other History: Denies:: Cancer Thyroid Disease History Blood Transfusions: Positive for:: Accept Blood Products? Blood Transfusions Denies:: Blood Transfuse Reaction Hx Diabetes: NoBedside Blood Glucose: 97 Hx Alcohol Use: Yes (occasionally)Hx Substance Use: No Smoking Status: Never Smoker Stop/Bang Treated for Sleep Apnea?: No S-Snoring: Do You Snore Loudly: No T-Tired: feel tired, fatigued: No O-Obsered: Observed not breath: No P-Blood Pressure: treated: No B- Body Mass Index > 35 kg/m2: No A- Age over 50: Yes N- Neck Large Circumference: No G- Gender Male: No JASON Total Score: 1 JASON Risk Assessment: Low Risk, <3 Yes Risk Assessment Category Category 1A: Patient has history of documented sleep apnea, and HAS NOT received any narcotic, sedative or anesthesia administration during this stay. Category 1B: Patient has history of documented sleep apnea, and HAS received any narcotic , sedative or anesthesia administration during this stay Category 2: Patient has SUSPECTED Obstructive Sleep Apnea, and HAS received any narcotic , sedative or anesthesia administration during this stay. Category 3: Patient has SUSPECTED Obstructive Sleep Apnea and HAS NOT received narcotic, sedative or anesthesia administration during this stay. Category 4: Outpatient in Procedural Areas with known sleep apnea or who screen positive for High Risk via the STOP/BANG questionnaire. Exam Exam Vital Signs Vital Signs Date Time Temp Pulse Resp B/P Pulse Ox O2 Delivery O2 Flow Rate FiO2 09/26/16 05:48 36.5 73 16 120/76 99 Room Air General Appearance: Alert, Oriented X3, Cooperative, No Acute Distress HEENT/AIRWAY: MP 2 Lungs: Clear to Auscultation, Normal Air Movement Heart: Exam Unremarkable, Normal S1, Normal S2, No Murmurs/Rubs/Gallops Meds/Labs/Diagnostics Admission Meds Current Medications Metronidazole HCl (Flagyl) 2,000 mg ONCE ONCE PO Last administered on 19:30; Start 09/25/16 at 19:00; Stop 09/25/16 at 19:01; Status DC Metronidazole HCl (Flagyl) 2,000 mg ONCE ONCE PO Last administered on 00:24; Start 09/25/16 at 23:00; Stop 09/25/16 at 23:01; Status DC Neomycin Sulfate (Neomycin Sulfate) 2,000 mg ONCE ONCE PO Last administered on 09/25/16 19:35; Start 09/25/16 at 19:00; Stop 09/25/16 at 19:01; Status DC Neomycin Sulfate (Neomycin Sulfate) 2,000 mg ONCE ONCE PO Last administered on 09/26/16 00:24; Start 09/25/16 at 23:00; Stop 09/25/16 at 23:01; Status DC Chlorhexidine Gluconate 1 applic 1 applic ONCE ONCE TOPICAL Last administered on 09/26/16 04:15; Start 09/25/16 at 20:30; Stop 09/25/16 at 20:31; Status DC Lactated Ringer's (Lr) 1,000 ml @ 120 mls/hr Q8H20M IV Last administered on 05:29; Start 09/26/16 at 05:00; Stop 09/26/16 at 13:19 Bedside Blood Glucose: 97 Labs Test 09/19/16 05:30 09/19/16 07:22 09/20/16 05:48 09/21/16 03:28 Prothrombin Time 10.8sec (8.1-12.5) Prothromb Time International Ratio 1.01ratio Hemoglobin A1c 5.7% (4.8-5.6) Hold Walls Top Tube Received (Received) Urine Color Straw (YELLOW) Urine Appearance Hazy (CLEAR,HAZY) Urine pH 5.5 (5.0-8.0) Urine Specific [place] 1.030 (1.003-1.035) Urine Protein Tracemg/dL (NEG,TRACE) Urine Glucose (UA) Negativemg/dL (NEGATIVE) Urine Ketones 40mg/dL (NEGATIVE) Urine Occult Blood Negative (NEGATIVE) Urine Nitrite Negative (NEGATIVE) Urine Bilirubin Negative (NEGATIVE) Urine Urobilinogen Normalmg/dL (NORMAL) Urine Leukocyte Esterase Negative (NEGATIVE) Urine RBC 0-2/hpf (0-2) Urine WBC 0-5/hpf (0-5) Urine Epithelial Cells Occasional/hpf (NONE-MOD) Urine Crystals Oxalic acid crystals (NONE Urine Bacteria Few/hpf (NONE-FEW) Urine Hyaline Casts Occasional/lpf (NONE) Urine Granular Casts None seen (NONE SEEN) Urine Waxy Casts None seen (NONE SEEN) Urine Red Blood Cell Casts None seen (NONE SEEN) Urine White Blood Cell Casts None seen (NONE SEEN) Urine Mucus Present (None Seen) Urine Trichomonas None seen (NONE SEEN) Urine Yeast None (NONE SEEN) Urinalysis Comment None Urine Culture Reflexed Not indicated Neutrophils (%) (Auto) 52.4% (40-74) Lymphocytes (%) (Auto) 32.5% (14-46) Monocytes (%) (Auto) 10.7% (4-12) Eosinophils (%) (Auto) 3.8% (0-5) Basophils (%) (Auto) 0.3% (0-3) Test 09/23/16 09:15 09/23/16 19:07 09/24/16 04:40 09/24/16 16:48 Total Bilirubin 0.4mg/dL (0.0-1.2) Aspartate Amino Transf (AST/SGOT) 32U/L (0-50) Alanine Aminotransferase (ALT/SGPT) 44U/L (0-32) Alkaline Phosphatase 49U/L (25-150) Total Protein 7.1g/dL (6.4-8.4) Albumin 4.5g/dL (3.4-5.0) Iron Level 28ug/dL (35-150) Total Iron Binding Capacity 427ug/dL (250-450) Percent Iron Saturation 7%sat (15-50) Unsaturated Iron Binding 398.9ug/dL Ferritin 6ng/mL (13-150) Phosphorus Level 4.4mg/dL (2.5-4.9) Magnesium Level 2.1mg/dL (1.6-2.6) Lipase 245U/L (13-60) Test 09/25/16 05:15 09/26/16 05:10 White Blood Count 3.6th/mm3 (3.8-10.1) Red Blood Count 3.96mil/mm3 (3.90-5.20) Hemoglobin 9.3g/dL (12.0-15.6) Hematocrit 30.8% (35.0-46.0) Mean Corpuscular Volume 77.8fL (81-100) Mean Corpuscular Hemoglobin 23.5pg (27.0-35.0) Mean Corpuscular Hemoglobin Concent 30.2% (32.0-37.0) Red Cell Distribution Width 16.1% (12.3-15.4) Platelet Count 250bil/L (150-400) Sodium Level 139mEq/L (134-144) Potassium Level 4.2mEq/L (3.5-5.2) Chloride Level 102mEq/L (97-108) Carbon Dioxide Level 22mmol/L (18-29) Blood Urea Nitrogen 19mg/dL (6-24) Creatinine 0.63mg/dL (0.57-1.00) Estimat Glomerular Filtration Rate 140mL/min (>59) Glucose Level 92mg/dL (60-99) Calcium Level 9.0mg/dL (8.5-10.1) Plan Impression Patient chart reviewed, patient interviewed and anesthestic plan with risks, benefits, and alternatives discussed, and informed consent obtained. ASA Physical Status: ASA2 Mod Systemic Disease Anesthetic Plan: GA Bene/Risks/Altern/Consents: Yes HP Complete Prior to Induction: Yes Dwaine Wooten DO Sep 26, 2016 07:17
[2016-09-26] MEDS ORDERED: metroNIDAZOLE 500 mg/100 mL NS Premix IV ONE (07:24)
[2016-09-26] MEDS ORDERED: CeFAZolin Inj 2 gm / 50mL D5W IV ONE ×2 (07:25→07:26)
[2016-09-26] MEDS ORDERED: Bupivacaine Liposome 1.3% 20 mL Inj ONE (07:25)
[2016-09-26] MEDS ORDERED: Bupivacaine-MPF 0.25% 30 mL Inj INFILTRATE ONE (07:33)
[2016-09-26] MEDS: MetoCLOpramide 5 mg/mL 2 mL Inj IVPUSH PRN (08:10)
[2016-09-26] MEDS ORDERED: fentaNYL-PF 50 mCg/mL 2 mL Inj IVPUSH PRN (09:30)
[2016-09-26] MEDS ORDERED: HYDROmorphone 1 mg/mL Inj IVPUSH PRN (09:30)
[2016-09-26] MEDS ORDERED: Labetalol 5 mg/mL 4 mL Inj IV PRN (09:30)
[2016-09-26] MEDS ORDERED: Atropine 0.4 mg/mL Inj IVPUSH PRN (09:30)
[2016-09-26] MEDS ORDERED: Lactated Ringer's 1,000 ML IV SCH (09:30)
[2016-09-26] MEDS ORDERED: Ondansetron 2 mg/mL 2 mL Inj IVPUSH PRN ×2 (09:30→11:40)
[2016-09-26] MEDS ORDERED: Phenylephrine 10,000 mCg/mL Inj IVPUSH PRN (09:30)
[2016-09-26] MEDS ORDERED: EPHEDrine Sulfate 50 mg/mL Inj IVPUSH PRN (09:30)
[2016-09-26] MEDS ORDERED: Lactated Ringer's 500 ML IV PRN (09:30)
[2016-09-26] MEDS ORDERED: Dexamethasone 4 mg/mL Inj IVPUSH PRN (09:30)
[2016-09-26] MEDS ORDERED: Bupivacaine-MPF 0.25%/EPI 30 mL Inj INJ ONE (10:11)
--- NOTE | 2016-09-26 10:14 | PCM.PHAPRO ---
Progress Date of Service: Sep 26, 2016 Laboratory Tests 72 Hours Test 09/23/16 19:07 09/24/16 04:40 09/24/16 16:48 09/25/16 05:15 Iron Level 28ug/dL (35-150) Total Iron Binding Capacity 427ug/dL (250-450) Percent Iron Saturation 7%sat (15-50) Unsaturated Iron Binding 398.9ug/dL Ferritin 6ng/mL (13-150) Sodium Level 139mEq/L (134-144) 139mEq/L (134-144) Potassium Level 4.1mEq/L (3.5-5.2) 4.3mEq/L (3.5-5.2) Chloride Level 106mEq/L (97-108) 105mEq/L (97-108) Carbon Dioxide Level 22mmol/L (18-29) 24mmol/L (18-29) Blood Urea Nitrogen 12mg/dL (6-24) 15mg/dL (6-24) Creatinine 0.49mg/dL (0.57-1.00) 0.52mg/dL (0.57-1.00) Estimat Glomerular Filtration Rate 187mL/min (>59) 175mL/min (>59) Glucose Level 93mg/dL (60-99) 97mg/dL (60-99) Calcium Level 8.7mg/dL (8.5-10.1) 9.1mg/dL (8.5-10.1) Phosphorus Level 4.4mg/dL (2.5-4.9) Magnesium Level 2.1mg/dL (1.6-2.6) Lipase 245U/L (13-60) White Blood Count 3.6th/mm3 (3.8-10.1) Red Blood Count 3.96mil/mm3 (3.90-5.20) Hemoglobin 9.3g/dL (12.0-15.6) Hematocrit 30.8% (35.0-46.0) Mean Corpuscular Volume 77.8fL (81-100) Mean Corpuscular Hemoglobin 23.5pg (27.0-35.0) Mean Corpuscular Hemoglobin Concent 30.2% (32.0-37.0) Red Cell Distribution Width 16.1% (12.3-15.4) Platelet Count 250bil/L (150-400) Test 09/26/16 05:10 09/26/16 08:04 Sodium Level 139mEq/L (134-144) Potassium Level 4.2mEq/L (3.5-5.2) Chloride Level 102mEq/L (97-108) Carbon Dioxide Level 22mmol/L (18-29) Blood Urea Nitrogen 19mg/dL (6-24) Creatinine 0.63mg/dL (0.57-1.00) Estimat Glomerular Filtration Rate 140mL/min (>59) Glucose Level 92mg/dL (60-99) Calcium Level 9.0mg/dL (8.5-10.1) Triglycerides Level 88mg/dL (0-149) Pt continues on TPN. Electrolytes as above. Per clinical lining layer, macronutrients will stay the same for now. Triglycerides also WNL. Same TPN (see below for formula), labs on order for am. Pharmacy will continue to follow this patient's TPN therapy. PARENTERAL NUTRITION ORDERS 7 25-Sep-16 Standard Hang Time: 2100 Substrates Total kcal: 1514 AMINO ACIDS 95 g DEXTROSE 260 g Total Volume (mL): 1800 LIPIDS 25 g Sterile Water for Injection QS mL To Infuse Over (hrs): 24 Total Volume 1800 mL At at a rate of (mL/hr): 75 Additives Sodium Chloride 60 mEq "typical" daily requirements Sodium Acetate 40 mEq Sodium 50-120mEq Potassium Chloride 50 mEq Potassium 60-120mEq Potassium Phosphate 10 mEq Phosphate 20-40mEq Calcium Gluconate 4.5 mEq Magnesium 8-32mEq Magnesium Sulfate 6 mEq Calcium 9-22mEq Acetate* 80-120mEq Chloride* 80-120mEq Regular Insulin units *Depending on acid-base status Famotidine 40 mg Multivitamins 1 std dose Insulin Regimen Trace Elements 1 std dose none Thiamine mg Regular Low Intensity Subcut Folic Acid mg Regular Medium Intensity Subcut Ascorbic Acid mg Regular High Intensity Subcut Regular Insulin Infusion Other: Special Instructions: To be infused via central line only. For delay or inturruption of TPN contact the pharmacist for alternative replacement solution. Signature Date: DESMOND KEY [id number] [facility] Pauly Foley PharmD Sep 26, 2016 10:13
[2016-09-26] MEDS ORDERED: MetoCLOpramide 5 mg/mL 2 mL Inj IVPUSH PRN (11:40)
[2016-09-26] MEDS: Polyethylene Glycol (PEG) 17 Gm Powder PO SCH (12:00)
--- NOTE | 2016-09-26 12:05 | PCM.ANEP1 ---
Post Anesthesia Phase 1 PACU Phase 1 Assessment Date of Service: Sep 26, 2016 Vital Signs Vital Signs Date Time Temp Pulse Resp B/P Pulse Ox O2 Delivery O2 Flow Rate FiO2 09/26/16 12:00 78 14 134/71 100 Simple Mask 10 09/26/16 11:45 74 11 133/74 99 Simple Mask 10 09/26/16 11:29 36.2 76 14 150/75 100 Simple Mask 10 09/26/16 11:25 78 14 148/86 100 Simple Mask 10 09/26/16 11:20 81 14 137/85 100 Simple Mask 10 09/26/16 11:15 81 14 137/85 100 Simple Mask 10 09/26/16 11:10 82 12 142/77 100 Simple Mask 10 09/26/16 11:05 88 8 133/74 99 Simple Mask 10 09/26/16 11:00 36.3 82 9 136/78 98 Simple Mask 10 09/26/16 05:48 36.5 73 16 120/76 99 Room Air Anesthetic Administered: GA Level of Alertness: Drowsy, not talking BRITTON's with Equal Strength: Yes Pain: No Pain Scale Score: 4 Nausea or Vomiting: No Airway Device: Oralpharangeal Airway Lungs: Clear to Auscultation, Normal Air Movement Dermatome Level: Full Sensation Dwaine Wooten DO Sep 26, 2016 12:05
[2016-09-26 13:02] LABS: BASOPHILS % (AUTO) 0 % (0-3); EOSINOPHILS % (AUTO) 0.1 % (0-5); MONOCYTES % (AUTO) 4.8 % (4-12); Mean Corpuscular Hemoglobin 23.6 pg (27.0-35.0); Mean Corpuscular Volume 77.6 fL (81-100); NEUTROPHILS % (AUTO) 90.6 % (40-74); Platelet Count 242 bil/L (150-400)
--- NOTE | 2016-09-26 13:30 | OP ---
[address] [address] OPERATIVE REPORT PATIENT: DESMOND KEY : 1960 MR#: [id number] ADMIT: 09/19/2016 JOB ID: [id number] DATE OF SURGERY: 09/26/2016 ANESTHESIA: General. PREOPERATIVE DIAGNOSIS(ES): Obstructing cecal cancer. POSTOPERATIVE DIAGNOSIS(ES): Obstructing cecal cancer. OPERATIVE PROCEDURE: 1. Laparoscopic right colectomy with intracorporeal [id number], functional end-to-end stapled anastomosis. 2. Laparoscopic resection of endometrial implant. 3. Laparoscopic peritoneal biopsy. SURGEON: Abdi Gross MD. FLYER BUILDER: Mark Duran PA-C (the housing assistant property manager was required for the safe and timely completion of the case) and RIAN Rodgers. COMPLICATIONS: None. BLOOD LOSS: 10 mL. SPECIMENS: 1. Peritoneal biopsy. 2. Endometrial pelvic implant. 3. Right colon and terminal ileum. DRAINS: None. FINDINGS: There was no evidence of hepatic metastasis. However, there was one adhesion from the right lobe of the liver to the anterior abdominal wall, and the peritoneal component of this was very hard and nodular. I therefore resected that for the peritoneal biopsy. The patient also had a small endometrial implant down in the pelvis which I resected. The tattoo from my colonoscopic biopsy was easily visible and was seen in the cecum/proximal ascending colon. The proximal small bowel was moderately dilated but appeared healthy. INDICATIONS/SIGNIFICANT HISTORY: The patient is a 55-year-old female who has developed signs and symptoms of progressive colonic obstruction over the past 4-6 weeks. She eventually presented to the emergency department for a third time where a CT scan was obtained that demonstrated an apple core lesion of the cecum. She was also found to be anemic. I therefore admitted her to my service, placed her on TPN and performed a colonoscopy, which confirmed the diagnosis of adenocarcinoma. She had been an inpatient for approximately one week prior to surgical resection. She had undergone a mechanical bowel prep a few days prior after the colonoscopy and had been on sips of a clear liquid diet since. She underwent oral antibiotic preparation the night before surgery and also took a chlorhexidine shower. OPERATIVE TECHNIQUE: The patient was taken into the operating room and placed in a supine position. General anesthesia was administered. Perioperative antibiotics were given. The abdomen was prepped and draped in a standard surgical fashion and a procedural pause was performed. Entry was gained into the abdomen through an infraumbilical incision using a 12-mm Optiview trocar. Pneumoperitoneum was achieved without complication. An additional 12-mm port was inserted in the left lateral mid abdomen and a 5-mm port was inserted in the lower midline and one in the left upper abdomen. The omentum was adhesed to her lower midline, and so I freed it up with the Ligasure device. I began by inspecting the abdomen. As described in findings, there was a small adhesion to the right lobe of the liver. I used an energy device to take down that adhesion and then resect the firm peritoneal nodule that was involved in that adhesion. I then divided the omentum towards my targeted colonic transection point to allow me to reflect the transverse colon cephalad. I then identified the ileocolic pedicle and dissected this to expose the artery. A Hem-o-Chang clip was placed on the artery and the artery was transected using energy device distal to the clip. This was just off the takeoff of the ileocolic over the duodenum. I then continued the dissection in a medial to lateral fashion superiorly up towards the gallbladder. When I had reached the superior limit of this, I had turned my attention to the colonic transection point. I made a small window in the mesentery at the undersurface of the colon. I then divided the colon with a ADAN-60 blue load. I then completed the mesenteric transection using the energy device and continued to mobilize the mesocolon around the hepatic flexure. I then turned my attention to the terminal ileum. The terminal ileum was dilated but not prohibitively so. I identified a transection point, made a window and I stapled with the ADAN-60 blue load. I then completed my mesenteric transection using the energy device. All that remained was to take down the white line of Toldt which was accomplished using the energy device. The specimen was then placed up above the right lobe of the liver. The surgical bed was inspected and found to be hemostatic. The ileal staple line had one spot that was bleeding quite profusely. A single clip was placed over the bleeding aspect of the staple line. I then aligned the small bowel with the transverse colon to prepare for isoperistaltic anastomosis. I then created a stapled anastomosis using the ADAN-60 blue load. The anastomosis was widely patent. I then closed the common enterotomy using a 3-0 V-Loc suture. A Lapra-Ty was placed on the end of the suture for extra security. I then made a very small Pfannenstiel incision using the patient's existing scar. A small wound protector was placed in this, and the specimen brought out. That fascia was then closed using a running 0 PDS suture. I then closed the two 12-mm port sites using 0 PDS with the laparoscopic suture passer. The skin was then closed using 4-0 Monocryl in a subcuticular fashion. The left lateral 12-port skin was closed loosely, as when I had removed the stapler off the anastomosis there was some stool in the stapler and I wanted to ensure that no infection developed least there was any contamination. Prior to removing my ports and closing the 12-mm port sites, I had placed a bilateral TAP block using liposomal bupivacaine. The case was then concluded. EDI
--- NOTE | 2016-09-26 13:39 | NUR ---
NUTRITION FOLLOW-UP: ASSESS: 55 year old female admitted for small bowel obstruction and cecal mass. Pt s/p colonoscopy on 09/23. Laparoscopic R colectomy today. Pt has been on TPN since 09/19 but TPN is not yet at goal rate d/t elevated lipids which are trending down. PMHx: Endometriosis, status post hysterectomy. DIET: NPO. Pt has been refusing PO intake. NUTRITION SUPPORT: TPN - 260 g dextrose, 95 g amino acids, and 25 g lipids to provide 1514 kcals and 95 g protein per day. LABS: Reviewed. Cr 0.52, Lipase 245 MEDICATIONS: Reviewed. Insulin, Reglan GI symptoms / stool: BM x4 09/24 ANTHROPOMETRICS: Current Wt: 62.1 kg Admit wt: 65.9 kg BMI: 23.4 kg/m2. IBW: 59.1 kg ESTIMATED NEEDS (CANCER): Calories: 1648 - 1977 kcal (25 - 30 kcal / kg BW) Protein: 65-100 g protein (1.0-1.5 g / kg BW) Fluids: 5401-0581 ml fluids (1 ml/kcal BW) NUTRITION DIAGNOSIS: 1) Inadequate oral intake related to inability to consume sufficient energy, as evidenced by small bowel obstruction--PERSIST, PT NOW ON TPN. INTERVENTION: 1) Recommend continuing TPN to 260 g dextrose, 95 g amino acids, and 25 g lipids to provide 1514 kcals and 95 g protein per day. 2) Recommend considering increasing lipids to 50 g in next 1-2 days. 3) Once diet is able to be advanced and well tolerated, recommend tapering TPN. MONITOR/EVALUATE: TPN tolerance / advance, diet advancement / tolerance, labs, GI/nutrition status. Follow per high nutritional risk guidelines.
--- NOTE | 2016-09-26 13:53 | NUR ---
POST-OP Patient received from the ED via a hospital bed. Patient is on O2 at 10 LPM via a simple mask for 6 hrs. Patient is placed on a continuous PO2. TPN ongoing. IVF ongoing. Dressing on her abdomen is CDI. IFC intact and draining to laura colored UO. Patient denies pain. She stated that she just has some abdominal tightness. Denies nausea/SOB. Oriented to room and call light. Family is at the bedside. (Pls. refer to post-op grid for assessments). Addendum: 09/26/16 at 1359 by FARHAN TONY RN TPN Per report from Tavo Zurita RN once TPN is finished then it TPN will be d/cd.
--- NOTE | 2016-09-26 14:11 | PCM.ANEP2 ---
Post Anesthesia Evaluation ASA/CMS Post Anesthesia Date of Service: Sep 26, 2016 VS in Patient's Normal Range?: Yes Resp Stable; Airway Patent?: Yes CV Function & Hydration Stable: Yes Mental Status Recovered?: Yes Pain control Satisfactory?: Yes N/V Control Satisfactory?: Yes Dwaine Wooten DO Sep 26, 2016 14:11
--- NOTE | 2016-09-26 14:36 | NUR ---
Social Work Note - Continued Discharge Planning: D/A: The Pt is a 55 y/o female that is now on day 7 of hospitalization for bowel obstruction/Cancer Dx. The Pt is scheduled to have surgery today 3/3. Pt discussed in rounds this morning, Pt to transfer to [facility] after surgery. P: The Pt is not medically stable for D/C, surgery scheduled for today. Pt likely to D/C home when medically ready with family to provide POV transportation. SAHARA Nguyen Talent Acquisition Project Manager KATTY Calderon
[2016-09-26] MEDS: Acetaminophen IV 1,000 MG in IV Premix 1 EACH IV SCH ×2 (14:51→23:46)
[2016-09-26] MEDS: Ondansetron 2 mg/mL 2 mL Inj IVPUSH PRN (17:25)
--- NOTE | 2016-09-26 17:52 | NUR ---
POST-OP UPDATE Patient weaned off high flow O2 after 6 hrs. On O2 at 2 LPM via NC. PO2 in the mid-high 90's at this time. Patient denies pain at this time. Patient was able to dangle at the side of the bed with some dizziness noted. Tolerated activity fairly. Patient complained of nausea and had 100 ml clear emesis noted after sitting at the side of the bed. Zofran 4 mg IVP administered. Patient will be on a full liquid diet per orders. Dressing remains CDI. IFC intact and draining to laura colored UO. Patient has been using her call light appropriately.
[2016-09-26] MEDS: HYDROmorphone 1 mg/mL Inj IVPUSH PRN (23:12)
[2016-09-27 00:23] VITALS: BP 108/65; PULSE 83; RESP 16; O2SAT 99
[2016-09-27] MEDS: Heparin 5,000 Unit/mL Inj SUBQ SCH ×3 (00:49→16:00)
[2016-09-27] MEDS: Insulin Human REGular 300 Unit/3 mL Inj SUBQ SCH ×4 (02:30→20:30)
[2016-09-27] MEDS: Acetaminophen IV 1,000 MG in IV Premix 1 EACH IV SCH ×4 (02:30→20:10)
[2016-09-27] MEDS: HYDROmorphone 1 mg/mL Inj IVPUSH PRN ×3 (03:48→14:26)
--- NOTE | 2016-09-27 04:09 | NUR ---
PAIN/NAUSEA/GAS PAIN: During initial assessment pt. c/o nausea, offered Reglan but pt. declined stated she was already given Zofran by the previous nurse. Eventually she had an emesis and nausea resolved, at that time she declined pain medication. Later on she woke up crying rated her pain at 10/10, given 1 mg of IV Dilaudid and scheduled IV Tylenol. Brought pain down to Zero. She is starting to burp up air, advised to get up and ambulate during the day if possible. Sharpe with laura urine. Dressing is CDI. Pt. is A & O, vss. Gave report to STEPHANIE Garay to care for this pt. the rest of the night.
--- NOTE | 2016-09-27 04:15 | NUR ---
Transfer of Care Nikki Madison RN gave report to this RN. This RN resumed care at 0245.
[2016-09-27 05:39] VITALS: BP 116/65; PULSE 76; RESP 16; O2SAT 100
[2016-09-27 05:41] LABS: BASOPHILS % (AUTO) 0.1 % (0-3); EOSINOPHILS % (AUTO) 0.1 % (0-5); MONOCYTES % (AUTO) 12.9 % (4-12); Mean Corpuscular Hemoglobin 23.8 pg (27.0-35.0); Mean Corpuscular Volume 77.8 fL (81-100); NEUTROPHILS % (AUTO) 72.7 % (40-74); Platelet Count 228 bil/L (150-400)
[2016-09-27 06:17] LABS: Magnesium 1.8 mg/dL (1.6-2.6)
[2016-09-27 09:11] VITALS: BP 110/66; PULSE 93; O2SAT 99
[2016-09-27] MEDS ORDERED: fentaNYL-PF 50 mCg/mL 2 mL Inj ONE (10:16)
[2016-09-27] MEDS ORDERED: HYDROmorphone 2 mg/mL Inj ONE (10:16)
--- NOTE | 2016-09-27 11:11 | NUR ---
Vomiting patient vomited 200cc after drinking impact 177cc. Offered anti nausea medication and refused. paged Dr Medrano and notified r/t vomiting episode and orders are," NPO except sips/chips and impact. per doctor continue to encourage impact and have her drink as tolerated. Doctor also aware r/t patient voided 200cc after caal out this morning approX 645AM.
[2016-09-27] MEDS: MetoCLOpramide 5 mg/mL 2 mL Inj IVPUSH PRN (12:29)
[2016-09-27] MEDS: Polyethylene Glycol (PEG) 17 Gm Powder PO SCH (12:33)
--- NOTE | 2016-09-27 12:38 | PROG NOTE ---
[address] [address] PROGRESS NOTE PATIENT: DESMOND KEY : 1960 MR#: [id number] ADMIT: 09/19/2016 JOB ID: [id number] DATE: 09/27/2016 SUBJECTIVE: Postop day one laparoscopic right colectomy. She says she feels well, though vomited once. She is trying to both take full liquids and her Impact. She is not passing any gas. OBJECTIVE: Vital signs are stable. Pulse was 93 this morning. Temperature was normal. She is on room air with an O2 sat of 99%. On examination, her incisions are closed without signs of cellulitis. Her abdomen is soft, mildly distended, with minimal tympany. LABORATORIES: Hematocrit is 28.1, white count is 9. Electrolytes are normal. IMPRESSION AND PLAN: Doing well. We discussed the fact that given her long history of preoperative obstruction, she may have more than the usual postoperative ileus. I have encouraged her to drink the Impact but if she is having difficulty taking in liquids, that she should simply just focus on the Impact and not feel that she needs to front load her intestines with a lot of fluid.
--- NOTE | 2016-09-27 13:09 | NUR ---
Voiding patient has been ambulating to bathroom for voids. 600cc out put so far this shift.
[2016-09-27] MEDS: Lactated Ringer's 1,000 ML IV SCH (13:28)
[2016-09-27 15:40] VITALS: BP 100/55; PULSE 70; RESP 17; O2SAT 98
--- NOTE | 2016-09-27 15:49 | NUR ---
NUTRITION FOLLOW-UP: ASSESS: 55 year old female admitted with small bowel obstruction and cecal mass; POD #1 following laparoscopic R colectomy. Pt has been on TPN since 09/19, but it was discontinued today by surgery. Patient not tolerating full liquids; diet order NPO with Impact Advanced Recovery only. Pt. not tolerating Impact today. Surgery believes pt. may have prolonged post-op ileus. PMHx: Endometriosis, status post hysterectomy. DIET:NPO. Pt has been vomiting with full liquids. NUTRITION SUPPORT DISCONTINUED: TPN - 260 g dextrose, 95 g amino acids, and 25 g lipids to provide 1514 kcals and 95 g protein per day. LABS: Reviewed. Cr 0.53. MEDICATIONS: Reviewed. MiraLax, reglan, zofran, insulin. GI symptoms / stool: BM x 4 (09/24). ANTHROPOMETRICS: Current Wt: 62.1 kg Admit wt: 65.9 kg BMI: 23.4 kg/m2. IBW: 59.1 kg ESTIMATED NEEDS (CANCER): Calories: 1648 - 1977 kcal (25 - 30 kcal / kg BW) Protein: 65-100 g protein (1.0-1.5 g / kg BW) Fluids: 7906-8755 ml fluids (1 ml/kcal BW) NUTRITION DIAGNOSIS: 1) Inadequate oral intake related to inability to consume sufficient energy, as evidenced by small bowel obstruction, now post-op ileus - PERSISTS. INTERVENTION: 1) In the event pt. unable to tolerate PO intake tomorrow, recommend restart TPN to mitigate nutritional issues. MONITOR/EVALUATE: TPN restart, diet advancement / tolerance, labs, GI/nutrition status. Follow per high nutritional risk guidelines.
[2016-09-27 19:48] VITALS: BP 120/70; PULSE 87; RESP 16; O2SAT 99
[2016-09-27] MEDS: Ondansetron 2 mg/mL 2 mL Inj IVPUSH PRN (20:10)
[2016-09-28 01:03] VITALS: BP 115/74; PULSE 74; RESP 16; O2SAT 99
[2016-09-28] MEDS: Heparin 5,000 Unit/mL Inj SUBQ SCH ×3 (01:30→17:10)
[2016-09-28] MEDS: Acetaminophen IV 1,000 MG in IV Premix 1 EACH IV SCH ×2 (01:31→08:55)
[2016-09-28 01:45] VITALS: BP 127/63; PULSE 67
[2016-09-28] MEDS: Insulin Human REGular 300 Unit/3 mL Inj SUBQ SCH ×4 (02:30→20:30)
[2016-09-28 05:56] VITALS: BP 113/67; PULSE 84; RESP 16; O2SAT 96
--- NOTE | 2016-09-28 07:18 | NUR ---
Nausea Pt c/o nausea this shift and was given Zofran IVP. The pt states," I think it works better than the other one" referring to Reglan. no other c/o nausea this shift. care ongoing.
[2016-09-28] MEDS ORDERED: TPN Per Pharmacist XX ONE (07:50)
--- NOTE | 2016-09-28 08:13 | PCM.PHAPRO ---
Progress Date of Service: Sep 28, 2016 TPN A/ Restarting previous TPN due to anticipated prolonged post-op ileus. P/ Starting with same admixture as previous order PARENTERAL NUTRITION ORDERS 1 28-Sep-16 Standard Hang Time: 2100 Substrates Total kcal: 1514 AMINO ACIDS 95 g DEXTROSE 260 g Total Volume (mL): 1800 LIPIDS 25 g Sterile Water for Injection QS mL To Infuse Over (hrs): 24 Total Volume 1800 mL At at a rate of (mL/hr): 75 Additives Sodium Chloride 60 mEq "typical" daily requirements Sodium Acetate 40 mEq Sodium 50-120mEq Potassium Chloride 50 mEq Potassium 60-120mEq Potassium Phosphate 10 mEq Phosphate 20-40mEq Calcium Gluconate 4.5 mEq Magnesium 8-32mEq Magnesium Sulfate 6 mEq Calcium 9-22mEq Acetate* 80-120mEq Chloride* 80-120mEq Regular Insulin units *Depending on acid-base status Famotidine 40 mg Multivitamins 1 std dose Insulin Regimen Trace Elements 1 std dose none Thiamine mg Regular Low Intensity Subcut Folic Acid mg Regular Medium Intensity Subcut Ascorbic Acid mg Regular High Intensity Subcut Regular Insulin Infusion Other: Casimiro Melchor Sep 28, 2016 08:13
[2016-09-28] MEDS: Ondansetron 2 mg/mL 2 mL Inj IVPUSH PRN (08:48)
[2016-09-28] MEDS: Lactated Ringer's 1,000 ML IV SCH (09:04)
[2016-09-28] MEDS: TPN Per Pharmacist XX SCH (09:49)
[2016-09-28] MEDS: Polyethylene Glycol (PEG) 17 Gm Powder PO SCH (12:00)
[2016-09-28 16:02] VITALS: BP 114/75; PULSE 92; RESP 18; O2SAT 98
--- NOTE | 2016-09-28 16:52 | PROG NOTE ---
[address] [address] PROGRESS NOTE PATIENT: DESMOND KEY : 1960 MR#: [id number] ADMIT: 09/19/2016 JOB ID: [id number] DATE: 09/28/2016 Afebrile. Stable vital signs. She tells me that she is passing a great deal of gas, had some liquidy stools that she compares to melted chocolate. She continues to have a bit of fear of food, has been taking her . On examination, her incisions are healing well. Her abdomen is soft. IMPRESSION AND PLAN: She is doing well. She has return of bowel function and I have told her to advance herself ad kyrie on soft food, but to continue taking her . She will be able to get in the shower. Her TPN was stopped yesterday, but upon review of the chart, it appears that this was an oversight and I have restarted her TPN as of this morning. I will also check a C. difficile in her stool given the description of it as a somewhat abnormal though this is likely simple return of normal bowel function.
--- NOTE | 2016-09-28 19:29 | NUR ---
Pain, Nausea Patient continues to have some discomfort at the surgical sites. Patient states that ordered Tylenol keeps pain within a tolerable level. Patient did has some nausea early in shift, resolved with ordered antiemetic. Care is ongoing. Addendum: 09/28/16 at 1936 by BEAU ARANA RN Patient reports loose stool, stool softener withheld.
[2016-09-28 19:59] VITALS: BP 143/86; PULSE 92; RESP 18; O2SAT 100
[2016-09-28] MEDS ORDERED: Total Parenteral Nutrition 1 BAG IV SCH (21:00)
[2016-09-29] MEDS: Heparin 5,000 Unit/mL Inj SUBQ SCH ×3 (00:54→17:11)
--- NOTE | 2016-09-29 02:24 | NUR ---
TPN Pt restarted on TPN this shift with no c/o numbness, tingling, or vomiting at this time. Stable Vital signs. "I know when I was given this in the very beginning my head became much clearer." Care ongoing.
[2016-09-29] MEDS: Insulin Human REGular 300 Unit/3 mL Inj SUBQ SCH ×4 (02:30→20:28)
[2016-09-29 05:23] VITALS: BP 109/69; PULSE 81; RESP 18; O2SAT 98
[2016-09-29] MEDS: TPN Per Pharmacist XX SCH (08:30)
--- NOTE | 2016-09-29 10:41 | PCM.PNSURG ---
Subjective Date of Service: Sep 29, 2016 Visit Information: Reason for Visit Bowel Obstruction/Cancer Dx Surgery/Surgery Date LAPRASCOPIC RIGHT COLECTOMY 09/26/16 Post-Op Day #3 Date of Admission: Sep 19, 2016 at 10:18 Hospital Day # Subjective: Receiving TPN, drinking impact, and eating a few bites of hot serial, Jell-O, and broth. No nausea or vomiting. Having small soft bowel movements, no diarrhea. Pain well controlled with oral Tylenol. Ambulatory in the room. Postop General: No Complaints Gastrointestinal: Tolerating Oral Feedings, No N/V, Passing Stool Pain Management: PO Postop Activity: Ambulating in Room Only Objective Vital Sign- Last 8 Hours Date Time Temp Pulse Resp B/P Pulse Ox O2 Delivery O2 Flow Rate FiO2 09/29/16 05:23 36.7 81 18 109/69 98 Room Air Intake and Output- Last 8 Hour 09/29/16 Cumulative From/Thru 07:00 09/19/16 04:57 - 09/29/16 06:17 Intake Total 1237 ml 58882 ml Output Total 1050 ml 50944 ml Balance 187 ml 61659 ml Intake Oral 600 ml 9697 ml IV Total 10 ml 54869 ml TPN/PPN 627 ml 6570 ml Output Urine Total 1050 ml 43348 ml Gastric Drainage Total 300 ml Emesis 625 ml Estimated Blood Loss 10 ml # Voids 47 # Bowel Movements 36 General: Alert, Cooperative, No Acute Distress Lungs: Clear to Auscultation Heart: Regular Rate/Rhythm, No Murmurs/Rubs/Gallops Abdomen: Soft, Non-tender, Non-distended SURGICAL WOUND : Wound General Appearence: Steri Strips, Sutures, Intact, Well Approximated, No Erythema, No Discharge Extremities: Thigh&Calf Soft/Nontender Neuro: Normal Speech Catheters: None Result Diagram: 09/27/16 0530 09/27/16 0530 Assessment & Plan Impression Invasive moderately differentiated adenocarcinoma of the cecum. POD #3 with return of bowel function. Final pathology pending. Problems: Plan 1. Continue soft diet. 2. Ambulation is encouraged. 3. Taper TPN in anticipation of discharge in the next 1-2 days. Pain Management: Oral Tylenol VTE Prophylaxis: Sub-Q Heparin (Unfractionated) Resuscitation Status: CPR: Attempt Resuscitation Mark Duarn PA-C Sep 29, 2016 10:40
--- NOTE | 2016-09-29 11:23 | PCM.PHAPRO ---
Progress TPN TPN per pharmacy A: Pts phosphorus decreased - will increase phosphorus for tonight PARENTERAL NUTRITION ORDERS 2 - Standard Hang Time: 2100 Substrates Total kcal: 1514 AMINO ACIDS 95 g DEXTROSE 260 g Total Volume (mL): 1800 LIPIDS 25 g Sterile Water for Injection QS mL To Infuse Over (hrs): 24 Total Volume 1800 mL At at a rate of (mL/hr): 75 Additives Sodium Chloride 60 mEq "typical" daily requirements Sodium Acetate 40 mEq Sodium 50-120mEq Potassium Chloride 50 mEq Potassium 60-120mEq Potassium Phosphate 20 mEq Phosphate 20-40mEq Calcium Gluconate 4.5 mEq Magnesium 8-32mEq Magnesium Sulfate 6 mEq Calcium 9-22mEq Acetate* 80-120mEq Chloride* 80-120mEq Regular Insulin units *Depending on acid-base status Famotidine 40 mg Multivitamins 1 std dose Insulin Regimen Trace Elements 1 std dose none Thiamine mg Regular Low Intensity Subcut Folic Acid mg Regular Medium Intensity Subcut Ascorbic Acid mg Regular High Intensity Subcut Regular Insulin Infusion Other: Special Instructions: To be infused via central line only. For delay or inturruption of TPN contact the pharmacist for alternative replacement solution. Signature Date: DESMOND KEY [address] [facility] Pharmacy will continue to follow, thanks! Alaina Tavarez PharmD Sep 29, 2016 11:23
--- NOTE | 2016-09-29 11:49 | NUR ---
NUTRITION FOLLOW-UP: ASSESS:55 year old female admitted with small bowel obstruction and cecal mass; POD #3 following laparoscopic R colectomy. TPN was stopped 09/27 but was re-started 09/28. She is tolerating TPN re-start and is currently on soft diet with improving PO. Per surgery, TPN will likely be stopped in next couple days. PMHx: Endometriosis, status post hysterectomy. DIET: SOFT. PO 0-50% NUTRITION SUPPORT: TPN - 260 g dextrose, 95 g amino acids, and 25 g lipids to provide 1514 kcals and 95 g protein per day. LABS: Reviewed. Gis Web Developer .46, Glu 100. No new lipase since 09/24 MEDICATIONS: Reviewed. MiraLax, reglan, zofran, insulin. GI symptoms / stool: BM x 4 (09/24). ANTHROPOMETRICS: Current Wt: 62.1 kg, BMI 22.1kg/m2, Admit wt: 65.9 kg IBW: 59.1 kg ESTIMATED NEEDS (CANCER): re-assessed 09/29 Calories: 1555 1865 kcal (25 - 30 kcal / kg BW) Protein: 65-95 g protein (1.0-1.5 g / kg BW) Fluids: 155-1865 ml fluids (1 ml/kcal BW) NUTRITION DIAGNOSIS: 1) Inadequate oral intake related to inability to consume sufficient energy, as evidenced by small bowel obstruction, now post-op ileus - PERSISTS. INTERVENTION: 1) Continue current TPN of 260g Dex, 95g AA and 25g lipids. 2) Recommend checking pt's lipase tomorrow. If pt continues on TPN and PO is less than 50% most meals, consider increasing lipids to 50g tomorrow. 3) Continue current diet and supps. Encourage PO intake. MONITOR/EVALUATE: TPN, diet advancement / tolerance, labs, GI/nutrition status. Follow per high nutritional risk guidelines.
[2016-09-29] MEDS: Polyethylene Glycol (PEG) 17 Gm Powder PO SCH (12:00)
[2016-09-29 12:57] VITALS: BP 114/76; PULSE 80; RESP 18; O2SAT 97
--- NOTE | 2016-09-29 13:55 | PATH ---
SURGICAL PATHOLOGY Attending Physician:Abdi Gross MD CASE STATUS: Signed Out PATIENT NAME: DESMOND KEY PID: [id number] : 1960 DATE COLLECTED:09/26/2016 15:52 SPECIMEN: 1: Peritoneum, Biopsy or Resection 2: Colon, Biopsy 3: Colon, Segment Resection for Tumor CLINICAL HISTORY: COLON CANCER 1). PERITONEAL BIOPSY (OUT 0832, FORMALIN 0835) 2). PELVIC IMPLANT (OUT 1002, FORMALIN 1003) 3). RIGHT COLON (OUT 1020, FORMALIN 1021) FINAL DIAGNOSIS: 1. Peritoneal Biopsy: Metastatic adenocarcinoma of the colon. 2. Pelvic Implant: Metastatic adenocarcinoma of the colon. 3. Right Colon: Two separate infiltrating adenocarcinomas, both moderately differentiated. Mass #1 involves the cecum, measures 3.1 x 2.5 x 1.7 cm, and invades the muscularis propria. Mass #2 involves the ascending colon, measures 3.5 x 3.0 x 1.8 cm, is circumferential, and extends into the pericolic adipose tissue. Neither tumor involves the serosa. Proximal, distal and radial margins negative. Eleven of 59 pericolic lymph nodes positive for metastatic adenocarcinoma. Tumor focally extends beyond the lymph node capsule im some of the involved nodes. Two isolated tumor deposits in the mesentery. Tumor staging: pT3, pN2b, pM1b Appendix with no evidence of malignancy. Other organs received: None. SYNOPTIC REPORT SPECIMEN: Terminal ileum, cecum, appendix and ascending colon. Procedure: Right hemicolectomy. Tumor Site: Cecum and ascending colon. Tumor Sizes: 3.1 x 2.5 x 1.7 cm and 3.5 x 3.0 x 1.8 cm. Macroscopic tumor perforation: Not identified. Histologic type: Adenocarcinoma. Histologic grade: Low grade. Microscopic tumor extension: Tumor involves the pericolic adipose tissue. Margins: Mesenteric: Uninvolved by invasive carcinoma. Proximal: Uninvolved by invasive carcinoma. Distal: Uninvolved by invasive carcinoma. Treatment Effect: No prior treatment. Lymphovascular invasion: Not identified. Perineural invasion: Not identified. Tumor deposits: Present. Number of tumor deposits: Two. Tumor staging: Primary tumor: pT3. Regional lymph nodes: pN2b. Number of lymph nodes examined: 59. Number of lymph nodes involved: 11. ICD10 C19 GROSS DESCRIPTION: The specimens are received in formalin, labeled with the patient's name, and sublabeled as the following: (1) peritoneal bx; (2) pelvic implant; (3) right colon. (1) The specimen consists of a piece of aaron-crenshaw semitranslucent membranous tissue (1.3 x 0.7 x 0.2 cm). Section code: (1A) tissue, bisected. Specimen entirely submitted. (2) The specimen consists of a piece of aaron-pink smooth shiny friable tissue (1.5 x 1.0 x 0.5 cm). Section code: (2A) tissue, serially sectioned. Specimen entirely submitted. (3) The specimen consists of terminal ileum (length-8.8 cm, proximal diameter-3.8 cm), ileocecal valve, cecum and ascending colon (length-17.2 cm, distal diameter-3.5 cm), attached appendix (length-5.8 cm, diameter-0.8 cm), attached mesentery (up to 8.2 cm in depth), and attached omentum (1.2 x 10.5 x 1.1 cm). The resection margins are received stapled. 2 pale-crenshaw solid firm irregular masses are identified within the colon. Mass #1 (3.1 x 2.5 x 1.7 cm) involves the cecum and is less than 0.1 cm from the serosa, 14.7 cm from the proximal, 12.5 cm from the distal, and 1.8 cm from the radial resection margins. Mass #1 is 3.8 cm from the ileocecal valve and 2.2 cm from the appendiceal orifice. Mass #2 (3.5 x 3.0 x 1.8 cm) is circumferential and is 2.5 cm distal to mass #1, less than 0.1 cm from the serosa, 16.5 cm from the proximal, 9.8 cm from the distal, and 3.5 cm from the radial resection margins. Mass #2 is 2.5 cm from the ileocecal valve. Mass #2 extends into the mesentery. Neither mass involves the appendix or ileocecal valve. Multiple wilson-crenshaw solid firm irregular masses (0.1 x 0.1 x 0.1 cm-3.8 x 3.0 x 0.9 cm) are identified throughout the omentum. The masses are located 2-10.5 cm from the colon. The mucosa is crenshaw with normal folds that become compact and distorted distally. No other nodules, masses or lesions are identified. Multiple possible lymph nodes (0.1 x 0.1 x 0.1 cm-1.2 x 1.1 x 0.6 cm) are identified. Section code: (3A) proximal resection margin, longitudinally sectioned, merchandiser retail representative; (3B) distal resection margin, longitudinally sectioned, merchandiser retail representative; (3C) radial resection margin with lymph node closest to mass #1; (3D) mass #1 with serosa, serially sectioned, merchandiser retail representative; (3E) mass #1, serially sectioned, merchandiser retail representative; (3F-3G) mass #2 with serosa, serially sectioned, merchandiser retail representative; (3H) mass #2, longitudinally sectioned, merchandiser retail representative; (3I) radial resection margin closest to mass #2; (3J) colon with closest mass within omentum, serially sectioned, merchandiser retail representative; (3K) ileocecal valve, longitudinally sectioned, merchandiser retail representative; (3L, 3M) colon, serially sectioned and submitted proximal to distal, merchandiser retail representative; (3N) appendix, merchandiser retail representative; (3O-3V) multiple intact lymph nodes; (3W-3Y) one lymph node in each cassette, bisected; (3Z-3FF) omentum, merchandiser retail representative. 09/27/16 ICD-9 CODES: CPT CODES: 1: 76040 2: 25008 3: 51071 PROCEDURE/ADDENDA: Addendum SPI Addendum Diagnosis TEST: NRAS Mutation Detection by PCR-SNAPSHOT Analysis INTERPRETATION: Negative - No evidence of NRAS mutations was detected in codons 12, 13, 59, 60, 61, 117 and 146 of exons 2, 3 and 4. 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 [id number] Testing completed and Interpreted by [facility], [place], [place]. Testing requested by Dr. Patten, [facility]. 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 Addendum Comment Please see [facility] report [id number] for complete details. Testing and Interpretation by [facility], [place], [place]. Testing requested by Dr. Patten, [facility]. Electronically Signed Out Fernandez Curry MD Electronically Signed Out Fernandez Curry MD [facility] [address], [place] [address] Technical component performed at [facility], [address], [place], [address]
[2016-09-29 19:45] VITALS: BP 127/76; PULSE 86; RESP 16; O2SAT 96
[2016-09-30] MEDS: Heparin 5,000 Unit/mL Inj SUBQ SCH ×2 (00:47→08:30)
[2016-09-30] MEDS: HYDROmorphone 1 mg/mL Inj IVPUSH PRN (00:54)
[2016-09-30 06:00] VITALS: BP 101/67; PULSE 76; RESP 16; O2SAT 100
--- NOTE | 2016-09-30 09:20 | PCM.PNSURG ---
Subjective Date of Service: Sep 30, 2016 Visit Information: Reason for Visit Bowel Obstruction/Cancer Dx Surgery/Surgery Date LAPRASCOPIC RIGHT COLECTOMY 09/26/16 Post-Op Day #4 Date of Admission: Sep 19, 2016 at 10:18 Hospital Day # Subjective: TPN off since last night, appetite much better. Ate a soft breakfast this morning with no nausea or vomiting. Continues to have diarrheal-type bowel movements. Ambulatory in the room. Complains of dyspepsia, worse after eating. Relates a history of treatment for dyspepsia with Prilosec. Pain well controlled with oral Tylenol and nighttime IV Dilaudid for breakthrough. Complains that narcotics cause nausea relaying a need to take an antiemetic prior to narcotic administration. Complains of persistent pain that left lower quadrant port site. Postop General: Other (as above) Gastrointestinal: Tolerating Oral Feedings, No N/V, Diarrhea Pain Management: IV Push Postop Activity: Ambulating in Room Only Objective Vital Sign- Last 8 Hours Date Time Temp Pulse Resp B/P Pulse Ox O2 Delivery O2 Flow Rate FiO2 09/30/16 06:00 36.5 76 16 101/67 100 Room Air 09/30/16 05:42 Supplement Oxygen Intake and Output- Last 8 Hour 09/30/16 Cumulative From/Thru 07:00 09/19/16 04:57 - 09/30/16 06:00 Intake Total 400 ml 07215 ml Output Total 500 ml 81808 ml Balance -100 ml 13381 ml Intake Oral 400 ml 08971 ml IV Total 50250 ml TPN/PPN 7314 ml Output Urine Total 500 ml 94757 ml Gastric Drainage Total 300 ml Emesis 625 ml Estimated Blood Loss 10 ml # Voids 47 # Bowel Movements 0 37 General: Alert, Cooperative, No Acute Distress Lungs: Clear to Auscultation Heart: Regular Rate/Rhythm Abdomen: Soft, Non-tender, Non-distended SURGICAL WOUND : Wound General Appearence: Steri Strips, Sutures, Intact, Well Approximated, No Erythema, No Discharge Neuro: Normal Speech Catheters: None Result Diagram: 09/27/16 0530 09/30/16 0500 Assessment & Plan Impression Metastatic invasive moderately differentiated adenocarcinoma of the cecum, pT3, pN2b, pM1b. POD #4 with return of bowel function. Stable for discharge. Problems: Plan 1. Pathology was not discussed. Dr. Gross will telephone the patient with pathology results when he returns tomorrow. 2. Remove PICC line 3. Discharged to home on: Impact, oral Tylenol, oxycodone for breakthrough pain , Zofran, and scheduled Prilosec. 4. Follow-up in the office with Dr. Gross in 7-10 days. Pain Management: Oral Tylenol Oxycodone for breakthrough pain VTE Prophylaxis: Sub-Q Heparin (Unfractionated) Resuscitation Status: CPR: Attempt Resuscitation copies to: Karina Simms Fred H PA-C Sep 30, 2016 09:20
--- NOTE | 2016-09-30 09:28 | PCM.DISURG ---
Surgical Discharge Instruction Date of Service Sep 30, 2016 Dates of Hospitalization Date of Hospital Admission Sep 19, 2016 at 10:18 Providers Admitting Physician: Abdi Gross MD Primary Care Physician: Karina Simms DO Attending Physician: Abdi Gross MD Discharge Diagnosis Discharge Diagnosis invasive moderately differentiated adenocarcinoma of the cecum, pT3, pN2b, pM1b . Post Operative diagnosis Same Diet Discharge Diet: No restrictions Activity Discharge Activity-General: Balance rest and activity, No driving while taking narcotic Dressing and Incisional Care Dressing Care: Allow Steri Stripes to fall off Follow Up Plan Follow-up Provider (F9): Abdi Gross MD Follow-up appointment: Days (7-10) Call your provider for: Fever, Increasing abdominal pain, Nausea, Vomiting, Wound redness, Increasing wound pain, Warmth to touch, Discharge @ incision, pus discharge Mark Duran PA-C Sep 30, 2016 09:28
[2016-09-30] MEDS ORDERED: OXYC-474 PO (09:36)
[2016-09-30] MEDS ORDERED: Acetaminophen PO (09:36)
[2016-09-30] MEDS ORDERED: ONDA4TAB9 PO (09:36)
--- NOTE | 2016-09-30 09:47 | PCM.DC.SUR ---
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 Problems: Operation 1. Colonoscopy with tattoo and biopsy. 2. Laparoscopic right colectomy with intracorporeal [id number], functional end-to-end stapled anastomosis. 3. Laparoscopic resection of endometrial implant. 4. Laparoscopic peritoneal biopsy. Brief History and Physical: The patient is a 55-year-old female who presented to the emergency department with a recurrent complaint of abdominal pain, nausea, and vomiting, and just overall feeling lousy. She reported that in the early part of July she developed what she describes as flu-like symptoms. This vomiting and diarrhea after eating a bowl of chili. She switched to a bland diet and eventually was able to feel a little bit better, however then she had recurrent symptoms. Since that time she had periodic recurrences of nausea and vomiting, heavy belching, and abdominal distention. She presented to the emergency department on two separate occasions with complaint of abdominal pain and nausea. This was on September 11 and then later on September 15. She was eventually referred to GI. The gastroenterology PA desired to obtain a CT scan as well as to schedule her for an endoscopy. Unfortunately her insurance company denied the CT scan and endoscopy was not scheduled. When she presented she was found to be tachycardic. A CT scan was obtained. This demonstrated mid and distal small bowel obstruction with findings suspicious for a cecal apple core lesion suggesting a primary colonic neoplasm. There was also a 1 cm right hepatic hypodensity which likely represented a small hepatic cyst, although metastatic disease was not excluded. She stated that she had a 4-5 pound weight loss over the two weeks prior to admission. Consultants: None Hospital Course: The patient was admitted and bowel prepped for a colonoscopy which occurred on her fourth hospital day. She underwent colon resection 3 days following colonoscopy. Prior to her operation she was optimized with impact. Postsurgically her recovery was unremarkable. Impact was continued postsurgically. TPN which had been instituted preoperatively was able to be discontinued the day prior to discharge. The patient had diarrheal-type bowel movements beginning on her first postsurgical day. By the patient's fourth postsurgical day she was stable for discharge. At the time of discharge she was eating moderate amounts of the soft diet with no nausea or vomiting, diarrhea continued, pain was well controlled with oral Tylenol and IV Dilaudid for nighttime/breakthrough pain (antiemetic was necessary for narcotic administration), her wounds appeared to be healing, and she was ambulatory in the room. Pathology: 3. Right Colon: Two separate infiltrating adenocarcinomas, both moderately differentiated. Mass #1 involves the cecum, measures 3.1 x 2.5 x 1.7 cm, and invades the muscularis propria. Mass #2 involves the ascending colon, measures 3.5 x 3.0 x 1.8 cm, is circumferential, and extends into the pericolic adipose tissue. Neither tumor involves the serosa. Proximal, distal and radial margins negative. Eleven of 59 pericolic lymph nodes positive for metastatic adenocarcinoma. Tumor focally extends beyond the lymph node capsule im some of the involved nodes. Two isolated tumor deposits in the mesentery. Tumor staging: pT3, pN2b, pM1b Disposition: The patient was discharged to home on her fourth postsurgical day. Follow-up Plan: She will follow-up in the office with Dr. Gross in 7-10 days. ([Acetaminophen]) 325 MG TABLET 975 MG PO Q6 Ascorbate Calcium (Vitamin C) 500 Mg Tablet 500 MG PO DAILY (Reported) Ferrous Sulfate (Ferrous Sulfate) 325 Mg Tablet 325 MG PO DAILY (Reported) Hyoscyamine SL (Hyoscyamine SL) 0.125 Mg Subl 0.125 MG SL QID Omeprazole (Omeprazole) 20 Mg Capsule.dr 20 MG PO BID (Reported) Ondansetron ODT (Zofran ODT) 4 Mg Tablet 4 MG PO Q4H PRN PRN For Nausea Oxycodone (Roxicodone) 5 Mg Tablet 5-10 MG PO Q4H PRN PRN For Pain Simethicone (Simethicone) 180 Mg Capsule 180 MG PO QID PRN PRN AD copies to: Karina Simms Fred H PA-C Sep 30, 2016 09:46
--- NOTE | 2016-09-30 10:25 | NUR ---
Social Work Note - Readiness for Discharge Data: EMR reviewed. Pt is on day 11 of hospitalization per H&P. Pt is not medically ready for discharge, anticipate discharge later today. Per RN notes, pt is up independent in room. Pt to discharge home with family to transport via POV. SW will continue to follow. Assessment: Pt who is independent at base. Plan: Pt to discharge home with family to transport via POV. No anticipated discharge needs. SW will continue to follow. SAHARA Ramirez
--- NOTE | 2016-09-30 11:11 | NUR ---
Arranged follow up appointment for 10/06/16 check in at 2PM for 215PM appointment with . Chart noted patient will also need an establishment appointment set up during this time. Updated DIRECTOR OF CLINICAL EDUCATION
--- NOTE | 2016-09-30 11:12 | NUR ---
Social Work- Discharge Data: EMR reviewed. Pt is on day 11 of hospitalization per H&P. Pt to discharge today. SW spoke with pt at bedside regarding discharge plan. Pt to discharge home with family to transport via POV. No discharge needs. Assessment: Pt who is independent at base. Plan: Pt to discharge home with family to transport via POV. No discharge needs. SAHARA Ramirez
[2016-09-30] MEDS: Polyethylene Glycol (PEG) 17 Gm Powder PO SCH (12:00)
--- NOTE | 2016-09-30 20:01 | NUR ---
Discharge Orders for discharge were received. The patient was made aware of the plans to discharge and was agreeable to go. Patient given information regarding her diagnosis and treatment, signs and symptoms to be aware of, follow up instructions, scripts and information on her new medications. The patient signified understanding of this information. PICC line removed per orders by IV therapy. The patient was then dressed in her own clothing and her belongings gathered. The patient then ambulated into a wheelchair and was wheeled to the main entrance to an awaiting family vehicle. At the time of discharge the patient was alert and oriented, with no complaints of shortness of breath, out of control pain or nausea, surgical sites intact.
[2016-10-10] MEDS ORDERED: ACET-171 PO (12:58)
[2016-10-21] MEDS ORDERED: NO MEDS (10:07)
[2016-11-19] MEDS ORDERED: IRON PO (14:14)
[2016-11-19] MEDS ORDERED: ASCO500C6 PO (14:14)
[2016-11-19] MEDS ORDERED: ONDA4TAB9 PO (14:14)
[2016-11-19] MEDS ORDERED: [UNRECOGNIZED DRUG - OTHER] (14:14)
[2016-11-19] MEDS ORDERED: [UNRECOGNIZED DRUG - CODE] PO (14:14)
[2017-01-02] MEDS ORDERED: VITA400C19 PO (12:30)
[2017-01-02] MEDS ORDERED: CBD Oil PO (12:30)
== END 2016-09-30 13:28 | disposition home or self-care (01) | DRG 330 ==
LOC: SED 04:54 → MOC 10:18 → OSC 09-26 12:15
PROVIDERS: ADMIT General Practice; ATTEND General Practice
PROC: 3E0436Z Introduction of Nutritional Substance into Central Vein, Percutaneous Approach (ICD-10-PCS; 2016-09-19)
PROC: 0DBH8ZX Excision of Cecum, Via Natural or Artificial Opening Endoscopic, Diagnostic (ICD-10-PCS; 2016-09-23 15:00)
PROC: 3E0H8KZ Introduction of Other Diagnostic Substance into Lower GI, Via Natural or Artificial Opening Endoscopic (ICD-10-PCS; 2016-09-23 15:00)
PROC: 0UB94ZZ Excision of Uterus, Percutaneous Endoscopic Approach (ICD-10-PCS; 2016-09-26)
PROC: 0DBW4ZX Excision of Peritoneum, Percutaneous Endoscopic Approach, Diagnostic (ICD-10-PCS; 2016-09-26)
PROC: 0DTF4ZZ Resection of Right Large Intestine, Percutaneous Endoscopic Approach (ICD-10-PCS; principal; 2016-09-26 07:15)
DX: C18.0 Malignant neoplasm of cecum (principal); K56.69 Other intestinal obstruction; D50.9 Iron deficiency anemia, unspecified; K21.9 Gastro-esophageal reflux disease without esophagitis; K66.0 Peritoneal adhesions (postprocedural) (postinfection); N80.3 Endometriosis of pelvic peritoneum

== ENCOUNTER 2016-10-30 07:31 | Day surgery (SDC) | payer OTHER ==
[2016-10-30] VITALS (10 sets, daily range): BP systolic 73–121; BP diastolic 55–79; PULSE 67–83; RESP 12–22; O2SAT 96–100
[~2016-10-30] VITALS: Ht 167.6 cm; Wt 64.0 kg
[~2016-10-30 07:31] MED LIST changes: +CeFAZolin Inj 2 GM in IV Premix 1 EACH IV ONE; -HYOS0.1218 SL; -LOPE-147 PO; +NO MEDS; -ONDA4TAB9 PO; -SIME180C42 PO
[2016-10-30] MEDS ORDERED: Dexamethasone 4 mg/mL Inj ONE (07:32)
[2016-10-30] MEDS ORDERED: Ondansetron 2 mg/mL 2 mL Inj ONE (07:32)
[2016-10-30] MEDS ORDERED: Propofol 10,000 mCg/mL 20 mL Inj ONE (07:32)
[2016-10-30] MEDS ORDERED: MetoCLOpramide 5 mg/mL 2 mL Inj ONE (07:32)
[2016-10-30] MEDS: Lactated Ringer's 1,000 ML IV SCH ×2 (08:22→09:05)
[2016-10-30] MEDS ORDERED: Lactated Ringer's 500 ML IV PRN (08:52)
[2016-10-30] MEDS ORDERED: Lactated Ringer's 1,000 ML IV SCH (08:52)
--- NOTE | 2016-10-30 08:52 | PCM.HPANE ---
Patient Data Surgeon Admitting Provider: Attending Provider:Abdi Gross MD Primary Care Physician:Karina Simms DO Other Provider:Lisa Smithingham Anesthesia Reason for Visit Cecal Cancer Ht/WT & BMI Height (Feet): 5 Height (Inches): 6 Weight (Kilograms): 64 Body Mass Index 22.00 Allergies Uncoded Allergies: ADHESIVE TAPES (PAPER OK) (Allergy, Unknown, 10/28/16) Past Anesthesia History Anesthesia History: Denies:: Abnormal Airway, Anesthesia Reactions, Difficult Intubation, Fam Anesthesia Reaction Diabetes History Hx Diabetes?: No MRSA MRSA: No Medications Hypertension Medication: No Home Meds Incl Beta Chayo: No Reported Medications [No Meds] No Conflict Check 10/21/16 History History of ENT Problems?: No HEENT History: Positive for:: TMJ (clenches teeth, no nightguard) Denies:: Abnormal Airway Cataracts Difficult Intubation Glaucoma Hearing Problem Sinus Problem Hx of Heart Problems?: No Cardiovascular History: Denies:: Cardiac Surgery Chest Pain Congestive Heart Failure Edema Heart Murmur Hypertension Pacemaker Rheumatic Fever Hx of Respiratory Problem?: No Respiratory History: Denies:: Asthma COPD Dyspnea Emphysema Hemoptysis Oxygen Administration Pneumonia Tuberculosis Use of C-PAP Machine Hx Neurologic Problems?: No Neurological History: Denies:: Alzheimer's Disease CVA Dementia Dizziness Headaches Multiple Sclerosis Parkinson's Disease Seizures Hx of GI Problems?: Yes Gastrointestinal History: Positive for:: Heartburn Denies:: Cirrhosis Diverticulitis Gastroesphageal Reflux Gastrointestinal Bleeding Hepatitis Rectal Bleeding Other GI Pertinent History: lap colectomy for cecal cancer september 2016 Hx of Problems?: No Genitourinary History: Denies:: HX of Hemodialysis Kidney Stones Urinary Tract Infection Female Hx: Positive for:: Problems with Breasts? (left breast lump benign ) Denies:: Currently (hysterectomy) Endometriosis Pelvic Inflammatory Skin History: Denies:: History Skin Disorders? Pressure Ulcers Hx Musculoskeletal Problems?: Yes Musculoskeletal History: Positive for:: Osteoarthritis Denies:: Back Injury Fibromyalgia Joint Replacement Musculoskeletal Trauma (rotator cuff, bunions) Myasthenia Gravis Systemic Lupus Hx of Psycho/Social Problems?: No Psycho Social History: Denies:: Anxiety Bipolar Disorder Hx Depression Hx Surgeries?: Yes (hyst, lap colectomy, tonsil, rotator cuff repair, maxine bunions) Hx Any Other Health Problems?: Yes Other History: Positive for:: Cancer (cecal) Hospitalization Denies:: Endocrine Disease Thyroid Disease History Blood Transfusions: Positive for:: Accept Blood Products? Blood Transfusions Denies:: Blood Transfuse Reaction Hx Diabetes: No Hx Alcohol Use: YesAlcoholic Drinks Per Day: one drink weeklyHx Substance Use : No Smoking Status: Never Smoker Have You Smoked inLast 12 mo: No Stop/Bang Treated for Sleep Apnea?: No Do You Have a CPAP Machine?: No S-Snoring: Do You Snore Loudly: No T-Tired: feel tired, fatigued: No O-Obsered: Observed not breath: No P-Blood Pressure: treated: No B- Body Mass Index > 35 kg/m2: No A- Age over 50: Yes N- Neck Large Circumference: No G- Gender Male: No JASON Total Score: 1 JASON Risk Assessment: Low Risk, <3 Yes Risk Assessment Category Category 1A: Patient has history of documented sleep apnea, and HAS NOT received any narcotic, sedative or anesthesia administration during this stay. Category 1B: Patient has history of documented sleep apnea, and HAS received any narcotic , sedative or anesthesia administration during this stay Category 2: Patient has SUSPECTED Obstructive Sleep Apnea, and HAS received any narcotic , sedative or anesthesia administration during this stay. Category 3: Patient has SUSPECTED Obstructive Sleep Apnea and HAS NOT received narcotic, sedative or anesthesia administration during this stay. Category 4: Outpatient in Procedural Areas with known sleep apnea or who screen positive for High Risk via the STOP/BANG questionnaire. Exam Exam Vital Signs Vital Signs Date Time Temp Pulse Resp B/P Pulse Ox O2 Delivery O2 Flow Rate FiO2 10/30/16 08:23 36.2 67 16 115/65 98 Room Air General Appearance: Oriented X3 HEENT/AIRWAY: MP 1 Lungs: Normal Air Movement Heart: Regular Rate/Rhythm Meds/Labs/Diagnostics Admission Meds Current Medications Lactated Ringer's (Lr) 1,000 ml @ 120 mls/hr Q8H20M IV Last administered on t 08:22; Start 10/30/16 at 05:00; Stop 10/30/16 at 13:19 Plan Impression Patient chart reviewed, patient interviewed and anesthestic plan with risks, benefits, and alternatives discussed, and informed consent obtained. NPO Status: [address] [place] [address] ASA Physical Status: ASA2 Mod Systemic Disease Anesthetic Plan: GA, MAC Bene/Risks/Altern/Consents: Yes HP Complete Prior to Induction: Yes Rodolfo Haro MD Oct 30, 2016 08:52
[2016-10-30] MEDS ORDERED: Dexamethasone 4 mg/mL Inj IVPUSH PRN (08:55)
[2016-10-30] MEDS ORDERED: MetoCLOpramide 5 mg/mL 2 mL Inj IVPUSH PRN (08:55)
[2016-10-30] MEDS ORDERED: Ondansetron 2 mg/mL 2 mL Inj IVPUSH PRN (08:55)
[2016-10-30] MEDS ORDERED: Phenylephrine 10,000 mCg/mL Inj IVPUSH PRN (08:55)
[2016-10-30] MEDS ORDERED: fentaNYL-PF 50 mCg/mL 2 mL Inj IVPUSH PRN (08:55)
[2016-10-30] MEDS ORDERED: EPHEDrine Sulfate 50 mg/mL Inj IVPUSH PRN (08:55)
[2016-10-30] MEDS ORDERED: HYDROmorphone 1 mg/mL Inj IVPUSH PRN (08:55)
[2016-10-30] MEDS ORDERED: Bupivacaine-MPF 0.25%/EPI 30 mL Inj INJ ONE (09:10)
[2016-10-30] MEDS ORDERED: HepLOK Flush 100 unit/mL 5 mL Inj IVFLUSH ONE (09:24)
--- NOTE | 2016-10-30 10:16 | DRSVH ---
PROCEDURE: X-RAY CHEST ONE VIEW, PORTABLE ([id number]) INDICATIONS: PORT TECHNIQUE: One view of the chest was acquired. COMPARISON: None. FINDINGS: Surgical changes and devices: Left chest port is seen with the tip projecting in the mid SVC. Lungs and pleura: No pleural effusions or pneumothorax. Lungs are clear. Mediastinum: Mediastinal contours appear normal. Heart size is normal. Bones and chest wall: No suspicious bony lesions. Overlying soft tissues appear unremarkable. IMPRESSION: Left chest port with the tip projecting in the mid SVC. No pneumothorax. Dictated by: Martin Martinez M.D. on 10/30/2016 at 10:13 Approved by: Martin Martinez M.D. on 10/30/2016 at 10:13
--- NOTE | 2016-10-30 12:51 | PCM.ANEP1 ---
Post Anesthesia Phase 1 PACU Phase 1 Assessment Vital Signs Vital Signs Date Time Temp Pulse Resp B/P Pulse Ox O2 Delivery O2 Flow Rate FiO2 10/30/16 10:40 68 16 108/62 100 Room Air 10/30/16 10:22 71 16 103/57 100 Room Air 10/30/16 10:15 71 16 110/67 100 Room Air 10/30/16 10:10 36.6 68 12 107/63 98 Room Air 10/30/16 10:05 72 20 100/61 99 Room Air 10/30/16 10:00 79 16 73/59 98 Room Air 10/30/16 09:55 79 19 121/79 96 Room Air 10/30/16 09:50 83 22 116/55 96 Room Air 10/30/16 09:47 36.1 114/63 10/30/16 08:23 36.2 67 16 115/65 98 Room Air Anesthetic Administered: GA Level of Alertness: Awake, talking Pain: No Nausea or Vomiting: No Oxygen Delivery: Room Air Lungs: Normal Air Movement Rodolfo Haro MD Oct 30, 2016 12:51
--- NOTE | 2016-10-30 12:52 | PCM.ANEP2 ---
Post Anesthesia Evaluation ASA/CMS Post Anesthesia VS in Patient's Normal Range?: Yes Resp Stable; Airway Patent?: Yes CV Function & Hydration Stable: Yes Mental Status Recovered?: Yes Pain control Satisfactory?: Yes N/V Control Satisfactory?: Yes Rodolfo Haro MD Oct 30, 2016 12:52
--- NOTE | 2016-10-30 16:47 | OP ---
[address] [address] OPERATIVE REPORT PATIENT: DESMOND KEY : 1960 MR#: [id number] ADMIT: 10/30/2016 JOB ID: [id number] DATE OF SURGERY: 10/30/2016 ANESTHESIA: General. PREOPERATIVE DIAGNOSIS(ES): Stage IV colon cancer. POSTOPERATIVE DIAGNOSIS(ES): Stage IV colon cancer. OPERATIVE PROCEDURE: Insertion of left subclavian vein Port-A-Cath using fluoroscopy with interpretation. SURGEON: Dr. Abdi Gross. BAROMETERS CALIBRATOR: Adams Mcmullen PA-C COMPLICATIONS: None. ESTIMATED BLOOD LOSS: Minimal. CONDITION: Satisfactory. SPECIMEN: None. FINDINGS: A low-profile port was placed into the left subclavian vein. INDICATIONS/SIGNIFICANT HISTORY: The patient is a 56-year-old female who recently presented with obstructing colon cancer for whom I performed a laparoscopic right colectomy. At the time surgery, she was found to have metastatic disease. She is scheduled to begin chemotherapy in the near future. OPERATIVE TECHNIQUE: The patient was taken into the operating room and placed in the supine position. General anesthesia was administered and perioperative antibiotics were given. The neck and chest were prepped and draped in a standard surgical fashion. A procedural pause was performed. The left subclavian vein was accessed at the second pause of the finder needle. A wire was inserted into the vein and position confirmed with fluoroscopy. The wire was seen to course through the heart down into the inferior vena cava. Local anesthetic was injected and a subcutaneous pocket created in the left anterior chest. A low-profile Port-A-Cath was secured in place using three 2-0 Prolene sutures. The catheter was tunneled up to the wire exit point and inserted into the vein using the Seldinger technique and fluoroscopy. The port aspirated and flushed nicely. It was locked with heparin. The skin was closed using a 3-0 vicryl followed by a running 4-0 Monocryl. Dermabond was applied. The entire procedure was well tolerated without complication. [facility]
[2016-11-19] MEDS ORDERED: IRON PO (14:14)
[2016-11-19] MEDS ORDERED: [UNRECOGNIZED DRUG - CODE] PO (14:14)
[2016-11-19] MEDS ORDERED: [UNRECOGNIZED DRUG - OTHER] (14:14)
[2016-11-19] MEDS ORDERED: ONDA4TAB9 PO (14:14)
[2016-11-19] MEDS ORDERED: ASCO500C6 PO (14:14)
[2017-01-02] MEDS ORDERED: VITA400C19 PO (12:30)
[2017-01-02] MEDS ORDERED: CBD Oil PO (12:30)
== END 2016-10-30 23:59 | disposition home or self-care (01) ==
LOC: SAS 07:31
PROVIDERS: ATTEND General Practice
DX: C18.0 Malignant neoplasm of cecum (principal); D50.9 Iron deficiency anemia, unspecified; R12 Heartburn; M19.90 Unspecified osteoarthritis, unspecified site; Z90.710 Acquired absence of both cervix and uterus; Z90.49 Acquired absence of other specified parts of digestive tract
CPT/HCPCS: 36561; 71010; 77001; C1788; J0690; J1100; J1642; J2405; J2765; J3010; J7120